=== PATIENT | male | born 1980 | race Caucasian/White ===

== ENCOUNTER 2020-09-17 12:54 | Outpatient (CLI) | payer OTHER, SELFPAY ==
[2020-09-17 17:44] LABS: Basophils Absolute Auto 0.1 K/mm3 (0.0-0.1); Basophils Percent Auto 0.7 % (0.2-1.2); Eosinophils Absolute Auto 0.1 K/mm3 (0-0.3); Eosinophils Percent Auto 2.1 % (0-4.4); Hemoglobin 14.8 g/dL (14.0-18.0); Immature Granulocyte Absolute 0.02 K/mm3 (0.00-0.031); Immature Granulocyte Percent A 0.3 % (0-0.5); Lymphocytes Absolute Auto 1.92 K/mm3 (0.9-3.2); Lymphocytes Percent Auto 28.7 % (18.3-44.2); Mean Corpuscular HGB Conc 34.4 g/dl (32-36); Mean Corpuscular Hemoglobin 31.2 pg (26-34); Mean Corpuscular Volume 90.5 fl (80-100); Mean Platelet Volume 10.3 fl (7.4-10.4); Monocytes Absolute Auto 0.6 K/mm3 (0.1-0.6); Monocytes Percent Auto 8.8 % (2.6-8.5); Neutrophils Percent Auto 59.4 % (45.5-73.1); Platelet Count Result 203 k/mm3 (150-375); Red Blood Count 4.75 M/mm3 (4.6-6.20); Red Cell Distribution Width 12.4 % (11.5-14.5); White Blood Count 6.7 K/mm3 (4.5-10.0)
[2020-09-17 18:10] LABS: Vitamin D 25 Hydroxy 23.6 ng/mL
[2020-09-17 18:18] LABS: Add Urine Microscopic? YES; Appearance Urine Clear (Clear); Bacteria Urine Trace /hpf; Bilirubin Urine Negative (Negative); Blood Urine 1+ (Negative); Color Urine Yellow (Yellow); Glucose Urine UA Negative (Negative); Ketones Urine Negative (Negative); Leukocyte Esterase Ur Negative LEU/UL (Negative); Mucus Urine Rare /lpf; Nitrate Urine Negative (Negative); Protein Urine 2+ mg/dL (Negative); RBC Urine 0-2 /hpf (0-2); Specific Grav Ur 1.023 (1.001-1.035); Squamous Epithelial Cell Urine Rare /hpf (Few); Urobilinogen Urine Negative mg/dL (<2.0); WBC Urine 0-3 /hpf
[2020-09-17 18:28] LABS: Alanine Aminotransferase 102 U/L (4-50); Alkaline Phosphatase 71 U/L (38-126); Anion Gap 5 mmol/L (8-16); Aspartate Amino Transferase 72 U/L (17-59); Bilirubin,Total 0.8 mg/dL (0.2-1.3); Blood Urea Nitrogen 15 mg/dL (9-20); Calcium 9.4 mg/dL (8.4-10.2); Carbon Dioxide 27 mmol/L (22-30); Chloride 105 mmol/L (98-107); Cholesterol 171 mg/dL (0-200); Estimated Glomerular Filt Rate > 60; Glucose 140 mg/dL (65-110); HDL Direct 33 mg/dL; Potassium 4.5 mmol/L (3.4-5.0); Sodium 137 mmol/L (137-145); Triglycerides 205 mg/dL (<150); Uric Acid 8.9 mg/dL (3.5-8.5)
[2020-09-17 18:39] LABS: LDL Cholesterol Direct 90 mg/dL
[2020-09-17 23:27] LABS: Folic Acid > 20.0 ng/mL (2.76->20)
[2020-09-23 05:33] LABS: C-Peptide 5.36 ng/mL (0.80-3.85); FSH 2.2 mIU/mL (1.6-8.0)
[2020-09-24 11:06] LABS: Testosterone Free 97.8 pg/mL (35.0-155.0); Testosterone Total 388 ng/dL (250-1100)
[2020-09-26 21:01] LABS: Estradiol, Ultrasensitive 60 pg/mL (< OR = 29)
== END 2020-09-17 12:55 | disposition home or self-care (01) ==
LOC: ANHBWCLAB 13:01
PROVIDERS: Visit Provider Family Medicine
DX: Z51.81 Encounter for therapeutic drug level monitoring (principal); Z79.899 Other long term (current) drug therapy; Z82.62 Family history of osteoporosis; G47.30 Sleep apnea, unspecified; J34.2 Deviated nasal septum; E29.1 Testicular hypofunction; M19.90 Unspecified osteoarthritis, unspecified site; J45.909 Unspecified asthma, uncomplicated; M10.9 Gout, unspecified
CPT/HCPCS: 36415; 80053; 80061; 81001; 82306; 82607; 82670; 82746; 83001; 84146; 84402; 84403; 84443; 84550; 84681; 85025

== ENCOUNTER 2020-10-02 12:09 | Outpatient (CLI) | payer OTHER, SELFPAY ==
[2020-10-02 19:36] LABS: Alanine Aminotransferase 108 U/L (4-50); Albumin Level 4.1 g/dL (3.5-5.1); Alkaline Phosphatase 78 U/L (38-126); Aspartate Amino Transferase 59 U/L (17-59); Bilirubin,Total 0.7 mg/dL (0.2-1.3); Uric Acid 8.5 mg/dL (3.5-8.5)
[2020-10-02 19:40] LABS: Hemoglobin A1C 7.1 % (<5.7)
[2020-10-02 20:07] LABS: Prostate Specific Antigen 0.4 ng/mL (< OR = 4.0)
[2020-10-02 20:50] LABS: Hepatitis B Surface Antigen Negative (Negative)
[2020-10-02 20:55] LABS: HAV RESULT Negative (Negative); Hepatitis B Core IgM Result Negative (Negative)
[2020-10-02 21:07] LABS: Hepatitis C Virus Antibody Negative (Negative)
== END 2020-10-02 12:10 | disposition home or self-care (01) ==
LOC: ANHBWCLAB 12:11
PROVIDERS: PCP Family Medicine; Visit Provider Family Medicine
DX: Z12.5 Encounter for screening for malignant neoplasm of prostate (principal); E79.0 Hyperuricemia without signs of inflammatory arthritis and tophaceous disease; R74.8 Abnormal levels of other serum enzymes; R94.5 Abnormal results of liver function studies; E34.9 Endocrine disorder, unspecified
CPT/HCPCS: 36415; 80074; 80076; 83036; 84153; 84550; G0103

== ENCOUNTER 2020-10-12 08:44 | Outpatient (CLI) | payer OTHER, SELFPAY ==
[2020-10-12 19:41] LABS: Hemoglobin A1C 6.6 % (<5.7)
== END 2020-10-12 08:45 | disposition home or self-care (01) ==
LOC: ANHBWCLAB 08:45
PROVIDERS: PCP Family Medicine; Visit Provider Family Medicine
DX: R73.09 Other abnormal glucose (principal)
CPT/HCPCS: 36415; 83036

== ENCOUNTER 2021-08-10 07:54 | Outpatient (CLI) | payer OTHER, SELFPAY ==
[2021-08-10 20:07] LABS: Hematocrit 47.9 % (42.0-52.0); Hemoglobin 16.1 g/dL (14.0-18.0); Mean Corpuscular HGB Conc 33.6 g/dl (32-36); Mean Corpuscular Hemoglobin 30.8 pg (26-34); Mean Corpuscular Volume 91.8 fl (80-100); Mean Platelet Volume 9.5 fl (7.4-10.4); Platelet Count Result 213 k/mm3 (150-375); Red Blood Count 5.22 M/mm3 (4.6-6.20); Red Cell Distribution Width 13.3 % (11.5-14.5); White Blood Count 5.7 K/mm3 (4.5-10.0)
[2021-08-10 20:15] LABS: Alanine Aminotransferase 82 U/L (6-50); Albumin Level 4.7 g/dL (3.5-5.1); Alkaline Phosphatase 62 U/L (38-126); Aspartate Amino Transferase 46 U/L (17-59); Bilirubin,Total 1.5 mg/dL (0.2-1.3)
[2021-08-10 20:18] LABS: Alanine Aminotransferase 82 U/L (6-50); Albumin Level 4.5 g/dL (3.5-5.1); Alkaline Phosphatase 63 U/L (38-126); Anion Gap 8 mmol/L (8-16); Aspartate Amino Transferase 45 U/L (17-59); Bilirubin,Total 1.5 mg/dL (0.2-1.3); Blood Urea Nitrogen 18 mg/dL (9-20); Calcium 8.8 mg/dL (8.4-10.2); Carbon Dioxide 27 mmol/L (22-30); Chloride 102 mmol/L (98-107); Cholesterol 168 mg/dL (0-200); Estimated Glomerular Filt Rate > 60; Glucose 119 mg/dL (65-110); HDL Direct 39 mg/dL; Potassium 4.1 mmol/L (3.4-5.0); Sodium 137 mmol/L (137-145); Triglycerides 154 mg/dL (<150)
[2021-08-10 20:29] LABS: LDL Cholesterol Direct 80 mg/dL
[2021-08-10 20:35] LABS: Creatinine Urine 281.3 mg/dL
[2021-08-10 21:41] LABS: MALB Creatinine Ratio 267.5 mg/g (0-30); Microalbumin Urine Random 752.6 mg/L (0-16.7)
[2021-08-12 04:51] LABS: Sex Hormone Binding Globulin 23 nmol/L (10-50)
[2021-08-13 12:13] LABS: Testosterone Total 197 ng/dL (250-1100)
[2021-08-23 00:06] LABS: Estradiol, Ultrasensitive 42 pg/mL (< OR = 29)
== END 2021-08-10 07:55 | disposition home or self-care (01) ==
PROVIDERS: PCP Family Medicine; Visit Provider Internal Medicine Endocrinology, Diabetes & Metabolism
DX: R74.8 Abnormal levels of other serum enzymes (principal); E11.9 Type 2 diabetes mellitus without complications; M10.9 Gout, unspecified; E34.9 Endocrine disorder, unspecified; E29.1 Testicular hypofunction; R79.89 Other specified abnormal findings of blood chemistry
CPT/HCPCS: 36415; 80053; 80061; 80076; 82043; 82670; 84270; 84403; 85027

== ENCOUNTER 2021-10-06 14:30 | Outpatient (RCR) | payer OTHER, SELFPAY ==
[2021-10-06 13:13] VITALS: BMI 50.9
[2021-10-06 14:01] VITALS: BMI 50.9
== END 2021-12-06 08:25 | disposition home or self-care (01) ==
LOC: ANHDMC 14:30
PROVIDERS: PCP Family Medicine; Referring Provider Internal Medicine Endocrinology, Diabetes & Metabolism; Visit Provider Internal Medicine Endocrinology, Diabetes & Metabolism
DX: E11.9 Type 2 diabetes mellitus without complications (principal); Z71.3 Dietary counseling and surveillance; Z71.89 Other specified counseling
CPT/HCPCS: 97802; 99199; G0108; G0109

== ENCOUNTER 2021-11-17 08:04 | Outpatient (CLI) | payer OTHER, SELFPAY ==
[2021-11-17 18:35] LABS: Albumin Level 4.2 g/dL (3.5-5.1)
[2021-11-17 18:56] LABS: Iron 106 ug/dL (49-181)
[2021-11-19 12:01] LABS: Sex Hormone Binding Globulin 20 nmol/L (10-50)
[2021-11-19 23:07] LABS: Testosterone Free 44.7 pg/mL (46.0-224.0); Testosterone Total 239 ng/dL (250-1100)
[2021-11-21 07:11] LABS: LH 3.2 mIU/mL (1.5-9.3); Prolactin 15.8 ng/mL (***)
[2021-11-24 18:57] LABS: Estradiol, Ultrasensitive 33 pg/mL (< OR = 29)
== END 2021-11-17 08:05 | disposition home or self-care (01) ==
LOC: ANHBWCLAB 08:05
PROVIDERS: PCP Family Medicine; Visit Provider Internal Medicine Endocrinology, Diabetes & Metabolism
DX: R74.8 Abnormal levels of other serum enzymes (principal); E29.1 Testicular hypofunction; R79.89 Other specified abnormal findings of blood chemistry
CPT/HCPCS: 36415; 82040; 82670; 83001; 83002; 83540; 84146; 84270; 84402; 84403

== ENCOUNTER 2022-01-11 06:32 | Outpatient (RCR) | payer OTHER, SELFPAY | END 2022-04-04 15:08 | disposition home or self-care (01) | LOC: ANHDMC 06:32 | PROVIDERS: PCP Family Medicine; Referring Provider Internal Medicine Endocrinology, Diabetes & Metabolism; Visit Provider Internal Medicine Endocrinology, Diabetes & Metabolism | DX: E11.9 Type 2 diabetes mellitus without complications (principal) | CPT/HCPCS: 99199 ==

== ENCOUNTER 2022-01-14 12:54 | Emergency (ER) | payer OTHER, SELFPAY ==
[2022-01-14 13:05] VITALS: BP 144/69; PULSE 87; RESP 20; TEMP 36.4; O2SAT 99
--- NOTE | 2022-01-14 13:29 | ED.URI ---
HPI - URI/Sore Throat General Chief Complaint: Upper Respiratory Infection Stated Complaint: Sinus Pain Time Seen by Provider: 01/14/22 13:10 Source: patient Mode of arrival: ambulatory Limitations: no limitations History of Present Illness HPI Narrative: Doe is a 41-year-old male patient presenting to the clinic today with complaints of sinus pain and ear pain. He reports that symptoms just began this morning. He denies any fever chills. MD elicited complaint: sore throat and nasal congestion Related Data Home Medications Medication Instructions Recorded Confirmed fluticasone propionate 50 1 spray intranasal DAILY 01/23/20 07/27/21 mcg/actuation nasal spray,suspension Allergies Allergy/AdvReac Type Severity Reaction Status Date / Time Iodinated Contrast Media Allergy Unknown Verified 01/14/22 13:32 Review of Systems Review of Systems: Pertinent positives per HPI. Patient denies any fever, chills, rash, headache, visual changes, dizziness, cough, shortness of breath, chest pain, palpitations, nausea, vomiting, diarrhea, constipation, abdominal pain, or any urinary issues. PMFSH Past Medical History Medical History Arthritis Asthma Deviated nasal septum Surgically corrected Gout Sleep apnea currently on CPAP Surgical History Surgical History History of ear surgery History of nasal surgery History of placement of ear tubes Hx of tonsillectomy Family History Family History Mother Hypertension Arthritis Father Hypertension Diabetes mellitus Grandparent Breast cancer Grandparent COPD (chronic obstructive pulmonary disease) Dementia Sibling Diabetes mellitus Social History Social History Years smoked: 12 Smoking status: Former smoker Alcohol intake: current Substance use type: does not use Spiritual care concerns: No Comments At the time of my signature, I reviewed and agree with the nursing past medical, surgical, social, and family history. There is no relevant family history pertinent to the patient complaint. Exam Narrative: General: Well-developed, well nourished, in no apparent distress Head: Normocephalic, atraumatic Eyes: Pupils equally round and reactive to light bilaterally, EOM intact, sclera and conjunctive clear, no discharge, lids normal Ears: Left TMs intact and clear, right TM intact, red, bulging ear canals clear, no drainage, grossly hearing normal. Nose: Nares patent, clear discharge, no inflammation, right-sided ethmoid sinus tenderness. Mouth: Oral pharynx without lesions or masses, good dentition, MMM. Neck: Supple, trachea midline, no enlargement of anterior or posterior cervical nodes, no thyroid masses or goiter palpable. Cardio: Regular rate and rhythm, s1 and s2 normal, no murmur appreciated. Resp: Clear to auscultation bilaterally, no rhonchi, rales, wheezing or rubs Course Course Emergency Course: Portions of this record may have been created with voice recognition software. Level of Care: Express Care Visit Vital Signs Vital signs: Vital Signs Temperature 36.4 C 01/14/22 13:05 Pulse Rate 87 01/14/22 13:05 Respiratory Rate 20 01/14/22 13:05 Blood Pressure 144/69 H 01/14/22 13:05 Pulse Oximetry 99 01/14/22 13:05 Oxygen Delivery Room Air 01/14/22 13:05 Temperature 36.4 C 01/14/22 13:05 Pulse Rate 87 01/14/22 13:05 Respiratory Rate 20 01/14/22 13:05 Blood Pressure 144/69 H 01/14/22 13:05 Pulse Oximetry 99 01/14/22 13:05 Oxygen Delivery Room Air 01/14/22 13:05 Vital signs reviewed MDM - URI/Sore Throat MDM Narrative Medical decision making narrative: at the time of visit patient is resting co
== END 2022-01-14 13:50 | disposition home or self-care (01) ==
PROVIDERS: Emergency Provider Nurse Practitioner Family; PCP Family Medicine
DX: H66.91 Otitis media, unspecified, right ear (principal); J32.9 Chronic sinusitis, unspecified; J45.909 Unspecified asthma, uncomplicated; G47.30 Sleep apnea, unspecified; Z87.891 Personal history of nicotine dependence
CPT/HCPCS: 87804; 99213; G0463

== ENCOUNTER 2022-06-20 08:27 | Outpatient (CLI) | payer OTHER, SELFPAY ==
[2022-06-20 17:53] LABS: Basophils Percent Auto 0.7 % (0.2-1.2); Eosinophils Absolute Auto 0.1 K/mm3 (0-0.3); Eosinophils Percent Auto 1.4 % (0-4.4); Hematocrit 47.2 % (42.0-52.0); Hemoglobin 15.6 g/dL (14.0-18.0); Immature Granulocyte Absolute 0.01 K/mm3 (0.00-0.031); Immature Granulocyte Percent A 0.2 % (0-0.5); Lymphocytes Absolute Auto 2.44 K/mm3 (0.9-3.2); Lymphocytes Percent Auto 43.2 % (18.3-44.2); Mean Corpuscular HGB Conc 33.1 g/dl (32-36); Mean Corpuscular Hemoglobin 30.2 pg (26-34); Mean Corpuscular Volume 91.3 fl (80-100); Mean Platelet Volume 9.7 fl (7.4-10.4); Monocytes Absolute Auto 0.5 K/mm3 (0.1-0.6); Monocytes Percent Auto 9.6 % (2.6-8.5); Neutrophils Absolute Auto 2.5 K/mm3 (1.3-6.7); Neutrophils Percent Auto 44.9 % (45.5-73.1); Platelet Count Result 226 k/mm3 (150-375); Red Blood Count 5.17 M/mm3 (4.6-6.20); Red Cell Distribution Width 12.5 % (11.5-14.5); White Blood Count 5.7 K/mm3 (4.5-10.0)
[2022-06-20 18:27] LABS: Alanine Aminotransferase 66 U/L (6-50); Albumin Level 4.3 g/dL (3.5-5.1); Alkaline Phosphatase 56 U/L (38-126); Anion Gap 6 mmol/L (8-16); Aspartate Amino Transferase 75 U/L (17-59); Bilirubin,Total 0.8 mg/dL (0.2-1.3); Blood Urea Nitrogen 19 mg/dL (9-20); Calcium 8.8 mg/dL (8.4-10.2); Carbon Dioxide 32 mmol/L (22-30); Chloride 100 mmol/L (98-107); Cholesterol 161 mg/dL (0-200); Estimated Glomerular Filt Rate > 60; Glucose 101 mg/dL (65-110); HDL Direct 32 mg/dL; Potassium 4.3 mmol/L (3.4-5.0); Sodium 138 mmol/L (137-145); Triglycerides 176 mg/dL (<150)
[2022-06-20 18:38] LABS: LDL Cholesterol Direct 80 mg/dL
[2022-06-20 18:57] LABS: Prostate Specific Antigen 0.6 ng/mL (< OR = 4.0)
[2022-06-20 19:03] LABS: Hemoglobin A1C 6.3 % (<5.7)
[2022-06-26 15:49] LABS: Testosterone Free 52.5 pg/mL (35.0-155.0); Testosterone Total 268 ng/dL (250-1100)
[2022-06-28 18:02] LABS: Estradiol, Ultrasensitive 36 pg/mL (< OR = 29)
== END 2022-06-20 08:28 | disposition home or self-care (01) ==
LOC: ANHBWCIMG 08:28 → ANHBWCLAB 08:31
PROVIDERS: PCP Family Medicine; Visit Provider Family Medicine
DX: R79.89 Other specified abnormal findings of blood chemistry (principal); E34.9 Endocrine disorder, unspecified; E11.9 Type 2 diabetes mellitus without complications
CPT/HCPCS: 36415; 80053; 80061; 82670; 83036; 84153; 84402; 84403; 85025; G0103

== ENCOUNTER 2022-11-08 08:08 | Outpatient (CLI) | payer OTHER, SELFPAY ==
[2022-11-08 19:15] LABS: Hematocrit 47.3 % (42.0-52.0); Hemoglobin 15.1 g/dL (14.0-18.0); Mean Corpuscular HGB Conc 31.9 g/dl (32-36); Mean Corpuscular Hemoglobin 30.5 pg (26-34); Mean Corpuscular Volume 95.6 fl (80-100); Mean Platelet Volume 10.1 fl (7.4-10.4); Platelet Count Result 219 k/mm3 (150-375); Red Blood Count 4.95 M/mm3 (4.6-6.20); White Blood Count 7.3 K/mm3 (4.5-10.0)
[2022-11-08 19:24] LABS: Hemoglobin A1C 6.3 % (<5.7)
[2022-11-08 19:46] LABS: Alanine Aminotransferase 67 U/L (6-50); Albumin Level 4.4 g/dL (3.5-5.1); Alkaline Phosphatase 68 U/L (38-126); Anion Gap 7 mmol/L (8-16); Aspartate Amino Transferase 65 U/L (17-59); Bilirubin,Total 0.5 mg/dL (0.2-1.3); Blood Urea Nitrogen 18 mg/dL (9-20); Calcium 8.9 mg/dL (8.4-10.2); Carbon Dioxide 28 mmol/L (22-30); Chloride 101 mmol/L (98-107); Cholesterol 168 mg/dL (0-200); Estimated Glomerular Filt Rate > 60; Glucose 126 mg/dL (65-110); HDL Direct 35 mg/dL; Potassium 4.6 mmol/L (3.4-5.0); Sodium 136 mmol/L (137-145); Triglycerides 135 mg/dL (<150)
[2022-11-08 19:57] LABS: LDL Cholesterol Direct 93 mg/dL
[2022-11-08 21:00] LABS: Microalbumin Urine Random 345.2 mg/L (0-16.7)
[2022-11-08 21:20] LABS: Creatinine Urine 137.9 mg/dL; MALB Creatinine Ratio 250.3 mg/g (0-30)
[2022-11-12 18:25] LABS: Testosterone Free 40.7 pg/mL (35.0-155.0); Testosterone Total 242 ng/dL (250-1100)
== END 2022-11-08 08:09 | disposition home or self-care (01) ==
LOC: ANHBWCLAB 08:10
PROVIDERS: PCP Nurse Practitioner Adult Health; Visit Provider Nurse Practitioner Adult Health
DX: E11.9 Type 2 diabetes mellitus without complications (principal); R79.89 Other specified abnormal findings of blood chemistry
CPT/HCPCS: 36415; 80053; 80061; 82043; 83036; 84402; 84403; 85027

== ENCOUNTER 2024-09-25 11:01 | Emergency (ER) | payer OTHER, SELFPAY ==
[2024-09-25 11:06] VITALS: BP 111/71; PULSE 60; RESP 14; TEMP 36.6; O2SAT 100
--- NOTE | 2024-09-25 11:32 | ED.EAR ---
HPI - Ear Problem General Chief complaint: Ear Stated complaint: Ear Pain Time Seen by Provider: 09/25/24 11:28 Source: patient and RN notes reviewed Mode of arrival: ambulatory Limitations: no limitations History of Present Illness HPI Narrative: Patient presents today complaining of left ear pain and pressure x2 days after swimming last week. Denies drainage or muffling. Currently rates his pain 3/10 and has tried no OTC treatment prior to arrival. Reports history of frequent ear infections. Related Data Home Medications ?Medication ?Instructions ?Recorded ?Confirmed ?Last Taken ?Type albuterol sulfate 90 mcg/actuation 2 puff inhalation Q4-6H PRN 01/14/22 11/07/22 Unknown History aerosol inhaler Shortness Of Breath chlorhexidine gluconate 0.12 % 09/25/24 Unknown History mouthwash cholecalciferol (vitamin D3) 1,250 09/25/24 Unknown History mcg (50,000 unit) capsule docusate sodium 100 mg capsule mg PO 09/25/24 Unknown History omeprazole 40 mg capsule,delayed mg 09/25/24 Unknown History release Allergies Allergy/AdvReac Type Severity Reaction Status Date / Time Iodinated Contrast Media Allergy Unknown Verified 09/25/24 11:06 [facility] Past Medical History Medical History Deviated nasal septum Surgically corrected Sleep apnea currently on CPAP Gout Arthritis Asthma Surgical History Surgical History History of nasal surgery History of ear surgery Hx of tonsillectomy History of placement of ear tubes Family History Family History Mother Hypertension Arthritis Father Hypertension Diabetes mellitus Grandparent Breast cancer Grandparent COPD (chronic obstructive pulmonary disease) Dementia Sibling Diabetes mellitus Social History Social History Years smoked: 12 Smoking status: Former smoker Alcohol intake: current Substance use type: does not use Lack of Transportation: No Lack of Food: Never True Current Housing: I Have Housing Concerned About Future Housing: No Difficulty Paying Gas/Electric Bills: YES Difficulty Paying for Meds: No Currently Unemployed: No Education: Trade/Vocational Certificate Difficulty w/ Childcare or Family Care: No Spiritual care concerns: No Comments At time of signature, I have reviewed and agree with nursing past medical, surgical, social and family history unless otherwise noted. Please see nursing chart for further information. There is no relevant family history pertinent to the presenting complaint Exam Narrative: GENERAL: Well-appearing, well-nourished, and in no acute distress. HEAD: Normocephalic, atraumatic. EYES: EOMI. No redness or drainage. Conjunctivae normal. ENT: Mucous membranes pink and moist. Right TM and canal normal. No movement or tragal tenderness on the right. Left ear:Left TM without erythema or signs of bacterial infection.+ tragal tenderness. Left canal is mildly erythematous with some mild white debris. NECK: Normal AROM. Supple. No lymphadenopathy. CHEST: No respiratory distress. EXTREMITIES: Normal range of motion. No edema. SKIN: Warm, dry, no rash. Capillary refill normal. Normal skin turgor. NEURO: No focal deficits. Alert and oriented x3. Gait steady. PSYCH: Normal affect. No signs of depression or anxiety. Course Course Level of Care: Express Care Visit Vital Signs Vital signs: Vital Signs Temperature 98 F 09/25/24 11:06 Pulse Rate 60 09/25/24 11:06 Respiratory Rate 14 09/25/24 11:06 Blood Pressure 111/71 09/25/24 11:06 Pulse Oximetry 100 09/25/24 11:06 Oxygen Delivery Room Air 09/25/24 11:06 Temperature 98 F 09/25/24 11:06 Pulse Rate 60 09/25/24 11:06 Respiratory Rate 14 09/25/24 11:06 Blood Pressure 111/71 09/25/24 11:06 Pulse Oximetry 100 09/25/24 11:06 Oxygen Delivery Room Air 09/25/24 11:06 Reviewed Medical Decision Making [facility] Narrative Medical decision making narrative: 44-year-old male patient presents today complaining of a 2 day history of left ear pain after swimming last week. Denies drainage or muffling. Currently rates his pain 3/10 and has tried no OTC treatment prior to arrival. Denies any additional symptoms. Upon exam, patient has tragal tenderness of the left ear with mild erythema and white debris in the ear canal. TM normal. Exam consistent with left otitis externa and patient will be treated with rwgajvvr-yqjftgmrh-ahbjmsruywrflu ear drops. Vital signs stable. Patient agrees with plan. Anticipatory guidance given. Differential Diagnosis Differential Diagnosis: Otitis media, otitis externa, ruptured TM, serous otitis, cerumen impaction Vital Signs Vital Signs: Vital Signs Temperature 98 F 09/25/24 11:06 Pulse Rate 60 09/25/24 11:06 Respiratory Rate 14 09/25/24 11:06 Blood Pressure 111/71 09/25/24 11:06 Pulse Oximetry 100 09/25/24 11:06 Oxygen Delivery Room Air 09/25/24 11:06 Temperature 98 F 09/25/24 11:06 Pulse Rate 60 09/25/24 11:06 Respiratory Rate 14 09/25/24 11:06 Blood Pressure 111/71 09/25/24 11:06 Pulse Oximetry 100 09/25/24 11:06 Oxygen Delivery Room Air 09/25/24 11:06 Critical Care Time Critical Care Time Critical Care Time: No Discharge Plan Discharge Clinical Impression: Left otitis externa Patient Disposition: Home Condition: Stable Instructions: Swimmer's Ear (GEN) Additional Instructions: You have been diagnosed with an infection in your ear canal. Please use the ear drops as directed. Keep the ears dry as possible. Do not submerge your head in standing water such as pools, hot tubs, lakes, bathtubs, until the infection has resolved. Showering is fine. Do not use anything in the ear that can be irritating such as Q-tips, ear plugs, ear buds. Take Tylenol or ibuprofen for pain, if able. Follow-up with your PCP in 3 days if symptoms are not improving. Patient Language: Romansh Prescriptions: New aaygjqxd-hdyqrqtbd-DJ 3.5-10,000-1 mg/mL-unit/mL-% drops,suspension 4 drp LEFT EAR Q8H 7 Days Qty: 10 0RF No Action albuterol sulfate 90 mcg/actuation HFA aerosol inhaler 2 puff inhalation Q4-6H PRN (Reason: Shortness Of Breath) omeprazole 40 mg capsule,delayed release(DR/EC) docusate sodium 100 mg capsule PO chlorhexidine gluconate 0.12 % mouthwash cholecalciferol (vitamin D3) 1,250 mcg (50,000 unit) capsule ketoconazole 2 % cream 1 applic topical DAILY Qty: 30 3RF (DME) pen needle, diabetic [1st Tier Unifine Pentips] 31 gauge x 5/16 needle See Rx Instructions .Route Qty: 100 3RF Rx Instructions: use 1 pen needle to inject Victoza once daily (DME) lancets [Fingerstix Lancets] Misc See Rx Instructions .Route Qty: 100 5RF Rx Instructions: As directed, 3 x day (DME) OneTouch Verio test strips Strip See Rx Instructions .Route Qty: 100 5RF Rx Instructions: As directed, test 3x day tamsulosin 0.4 mg capsule 0.4 mg PO DAILY Qty: 90 1RF Follow-up/Referrals: Oneil,DALILA Payne [Primary Care Provider] - Time of Disposition: 11:36
--- OUTSIDE RECORDS SUMMARY | 2024-09-25 11:47 | XMS_ITS ---
Author Organization [facility] Address [address] [place], [place] [id number] Care Team Providers Care Conductor Sleeping Car Name Role Phone Derek Xie DO Unavailable [phone] Medications Medication SIG (Take, Route, Frequency, Duration) Notes Start Date End Date Status Flomax 0.4 MG 1 capsule Orally Onc e a day Unknown Vitamin D3 1.25 MG (07622 UT) 1 capsule Orally Every week; Duration: 30 days 03/06/2024 03/01/2025 Unknown Meloxicam 15 MG 1 tablet Orally Once a day Unknown Docusate Sodium 100 MG 1 capsule every m orning and evening Orally Twice a day; Duration: 30 days 04/26/2024 08/24/2024 Active Victoza 18 MG/3ML as directed Subcutaneous Unknown traMADol HCl 50 MG 1 tablet as needed O rally Once a day Unknown Problems Problem Type SNOMED Code ICD Code Onset Dates Problem Status W/U Status Risk Notes Problem Vitamin deficiency (22389567) Vitamin deficiency, unspecified (E56.9) Active confirmed Problem 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) Active confirmed Vital Signs Temperature 97.1 degrees Fahrenheit 06/06/19 25 Blood pressure systolic 115 mm Hg 06/06/19 25 Blood pressure diastolic 78 mm Hg 025 Heart Rate 72 /min 06/05/2024 Height 74 in 06/05/2024 Weight 328 lbs 06/05/2024 BMI 42.11 kg/m2 06/05/2024 Oximetry 98 % 06/05/2024 Height-cm 187.96 cm 06/05/2024 Weight-kg 148.78 kg 06/05/2024 Encounters Encounter Location Date Provider Diagnosis [facility] [address] [place], [place] [id number] 06/05/2024 Derek Xie Vitamin deficiency, unspecified E56.9 ; Morbid (severe) obesity due to excess calories E66.01 ; Other specified personal risk factors, not elsewhere classified Z91.89 ; S/P bariatric surgery Z98.84 ; Postoperative intestinal malabsorption K91.2 and Obstructive sleep apnea G47.33 Assessments Encounter Date Diagnosis (ICD Code) Assessment Notes Treatment Notes Treatment Clinical Notes Section Notes 06/05/2024 Vitamin deficiency, unspecified (ICD-10 - E56.9) 06/05/2024 Morbid (severe) obesity due to excess calories (ICD-10 - E66.01) 06/05/2024 Other specified personal risk factors, not elsewhere classified (ICD-10 - Z91.89) 06/05/2024 S/P bariatric surgery (ICD-10 - Z98.84) 06/05/2024 Postoperative intestinal malabsorption (ICD-10 - K91.2) 06/05/2024 Obstructive sleep apnea (ICD-10 - G47.33) Plan Of Treatment Pending Test Test Name Order Date IRON, TIBC AND FERRITIN PANEL (5616) COMPREHENSIVE METABOLIC PANEL (51582) CBC (H/H, RBC, INDICES, WBC, PLT) (1759) 06/05/2024 HEMOGLOBIN A1c (496) 06/05/2024 VITAMIN B12/FOLATE, SERUM PANEL (7065) 0 06/05/2024 TSH (899) 06/05/2024 VITAMIN D,25-OH,TOTAL,IA (40152) 025 ZINC (945) 06/05/2024 VITAMIN B1 (THIAMINE), SERUM/PLASMA, LC/ MS/MS (71981) 06/05/2024 Next Appt Details Follow Up: 6 Months, Reason: Procedure Notes * Category Sub-Category Detail Notes Post Operative Plan Education: Emphasized e xercise and activity expectations; goal of 10,000 steps/day & 150 active min/wk. Reiterated importance of drinking at least 64 oz fluid & taking in at least 60-90g protein daily: . Patient understands the ryan y postop vitamin requirements: MVI, calcium + Vit D (1,500IU), folate 100mg, and any other vitamin supplements as needed based on laboratory monitoring. Reviewed appropriate eating habits and food choices: . Reminded patient that surger y is not a magic fix for weight loss: it is hard work and requires many behavioral changes to be successful. Encouraged patient follow with their PCP regularly, especially regarding medication changes: ; to see a counselor if mental health concerns arise; and continue to follow-up with bariatric senior electrical designer. There are no barriers to education today: . DISPOSITION: Return in: 6 months for follo w-up visit. Patient also instructed to h ave repeat labs drawn prior to next postop follow-up visit; orders placed: CBC w/diff, CMP, Vit B1, Folate, Vit B12, iron/TIBC, lipid panel, 25-Hydroxy, HbA1C, zinc. The patient is encouraged to call the clinic with any questions or concerns in the meantime. The patient demonstrates understanding and is amendable to the above outlined plan: . Progress Notes * Anthony ANDINOOB:1980 (44 yo M)Acc No.[id number]:06/05/2024 Patient: Doe DAWKINS Provider: Finn Xie DO :1980 A ge:44 Y S ex:Male Date:06/05/2024 Address[id number] Subjective: * Chief Complaints: * * HPI: H istory of Present Illness: Visit: T jacoby since surgery: 2 MONTHS - S urgical Procedure: S leeve Gastrectomy D ate of Surgery: 0 04/08/2024 Interval History: T he patient is a p resenting for bariatric postoperative follow-up. Since our last follow-up, ailyn kamara been taking bariatric vitamins and ailyn kamara not had bariatric vitamin labs drawn. > INTERVAL ISSUES/CONCERNS: n one H as patient been admitted to the hospital??No H as patient undergone any post-bariatric surgical operations or interventions? N o P re-surgical Weight: 4 07 lb L ast Visit Weight: 3 53 lb T SUZI'S WEIGHT: 3 28 lb T otal Weight Loss (TBW): 7 9 lb % TBW Lost: 1 9.4 % > Daily fluid/water intake = 4 0-60 ounces > Protein Intake is a dequate > Physical Activity: W alking less than 10,000 steps/day COMORBIDITY EVALUATION : LOLLY No GERD No Hypertension No Hyperlipidemia No Diabetes No VTE No Is Patient attending any support groups E ncouraged attendance . Does patient take any medications for weight loss? - N o * ROS: G eneral / Constitutional: Chills d enies. F ever d enies. A llergy / Immunology: Blistering skin d enies. H EENT: Difficulty in swallowing d enies. N jennyfer congestion?denies. E ndocrine: Cold intolerance d enies. E xcessive thirst d enies. R espiratory: Chest pain d enies. C ough d enies. ? C ardiovascular: Chest pain d enies. P alpitations d enies. W eakness d enies. G astrointestinal: Abdominal pain d enies. D iarrhea d enies. J aundice d enies. R ectal bleeding d enies. G enitourinary: Blood in the urine d enies. D ifficulty urinating d enies. M usculoskeletal: Limping gait d enies. W eakness d enies. B urning pain in lower legs d enies. P sychiatric: Auditory / visual hallucinations d enies. S ubstance abuse d enies. S uicidal thoughts d enies. R eview of Systems: Fever/Chills: N o. E levated HR: N o. B loating/hiccups: N o. S OB/cough/wheezing: N o. L ower extremity pain or swelling: N o.?Decreased UOP: N o. B owel function N ormal BMs without complaint. ? * Medical History: * Medications: T aking Docusate Sodium 100 MG Capsule 1 capsule every morning and evening Orally Twice a day , stop date 08/24/2024, Unknown traMADol HCl 50 MG Tablet 1 tablet as needed Orally Once a day , Unknown Flomax 0.4 MG Capsule 1 capsule Orally Once a day , Unknown Meloxicam 15 MG Tablet 1 tablet Orally Once a day , Unknown Vitamin D3 1.25 MG (23414 UT) Capsule 1 capsule Orally Every week , stop date 03/01/2025, Unknown Victoza 18 MG/3ML Solution Pen-injector as directed Subcutaneous Objective: * Vitals: W t:328, Ht:74, BMI:42.11, Oxygen sat %:98, HR:72, BP:115/78, Temp:97.1, Wt- k.78, Ht-cm:187.96, Body Surface Area:2.79. Past Vitals:* 04/24/2024 Wt:253, BMI:32.48, BP:109/76 * 02/22/2024 Wt:399, BMI:51.22, BP:135/11 3 * 12/20/2023 Wt:407, BMI:52.25, BP:117/78 * 12/20/2023 Wt:407, BMI:52.25, BP:117/78 * Examination: P hysical Exam: General: W ell-developed a dult in no acute distress Head: A traumatic, normocephalic . Neck: S upple, trachea midline. No cervical lymphadenopathy . Chest: Unlabored breathing without respiratory distress Heart: Normal rate and regular rhythm Abdomen: Soft, non-tender, Bowel sounds normal, No masses, no organomegaly Extremities: Warm and well perfused Psych G ood insight, good judgement, appropriate affect . Integumentary: W arm and dry . R eviewed any recent lab &/or imaging results w ith patient during visit today. Assessment: * Assessment: 1. M orbid (severe) obesity due to excess calories - E66.01 (Primary) 2 . V itamin deficiency, unspecified - E56.9 3 . O ther specified personal risk factors, not elsewhere classified - Z91.89 4 . S /P bariatric surgery - Z98.84 & #160; 5 . P ostoperative intestinal malabsorption - K91.2 6 . O bstructive sleep apnea - G47.33 Plan: * Treatment: 2. O ther specified personal risk factors, not elsewhere classified L AB: IRON, TIBC AND FERRITIN PANEL (5616) L AB: COMPREHENSIVE METABOLIC PANEL (44955) L AB: CBC (H/H, RBC, INDICES, WBC, PLT) (1759) L AB: HEMOGLOBIN A1c (496) L AB: VITAMIN B12/FOLATE, SERUM PANEL (7065) L AB: TSH (899) L AB: VITAMIN D,25-OH,TOTAL,IA (35900) L AB: ZINC (945) L AB: VITAMIN B1 (THIAMINE), SERUM/PLASMA, LC/MS/MS (54668) 3. S /P bariatric surgery L AB: IRON, TIBC AND FERRITIN PANEL (5616) L AB: COMPREHENSIVE METABOLIC PANEL (73060) L AB: CBC (H/H, RBC, INDICES, WBC, PLT) (1759) L AB: HEMOGLOBIN A1c (496) L AB: VITAMIN B12/FOLATE, SERUM PANEL (7065) L AB: TSH (899) L AB: VITAMIN D,25-OH,TOTAL,IA (42429) L AB: ZINC (945) L AB: VITAMIN B1 (THIAMINE), SERUM/PLASMA, LC/MS/MS (82340) 4. P ostoperative intestinal malabsorption L AB: IRON, TIBC AND FERRITIN PANEL (5616) L AB: COMPREHENSIVE METABOLIC PANEL (87556) L AB: CBC (H/H, RBC, INDICES, WBC, PLT) (1759) L AB: HEMOGLOBIN A1c (496) L AB: VITAMIN B12/FOLATE, SERUM PANEL (7065) L AB: TSH (899) L AB: VITAMIN D,25-OH,TOTAL,IA (12240) L AB: ZINC (945) L AB: VITAMIN B1 (THIAMINE), SERUM/PLASMA, LC/MS/MS (16338) * Procedures: P ost Operative Plan: Education: E mphasized exercise and activity expectations; goal of 10,000 steps/day & 150 active min/wk. Reiterated importance of drinking at least 64 oz fluid & taking in at least 60-90g protein daily . P atient understands the daily postop vitamin requirements: MVI, calcium + Vit D (1,500IU), folate 100mg, and any other vitamin supplements as needed based on laboratory monitoring. Reviewed appropriate eating habits and food choices . R eminded patient that surgery is not a magic fix for weight loss: it is hard work and requires many behavioral changes to be successful. Encouraged patient follow with their PCP regularly, especially regarding medication changes ; t o see a counselor if mental health concerns arise; and continue to follow-up with bariatric senior electrical designer. There are no barriers to education today . DISPOSITION: R eturn in 6 months for follow-up visit. P atient also instructed to have repeat labs drawn prior to next postop follow-up visit; orders placed: CBC w/diff, CMP, Vit B1, Folate, Vit B12, iron/TIBC, lipid panel, 25-Hydroxy, HbA1C, zinc. The patient is encouraged to call the clinic with any questions or concerns in the meantime. The patient demonstrates understanding and is amendable to the above outlined plan . * Procedure Codes: 9 9024 POSTOP FOLLOW-UP VISIT * Follow Up: 6 Months Forms: * Billing Information: * Visit Code: * Procedure Codes: 35518 POSTOP FOLLOW-UP VISIT. * Electronic signature of Shady Xie DO, [id number] on 09/25/2024 at 11:47 AM CDT Sign off status: Pending * Provider: Finn Xie DO Date: 0 06/05/2024 Generated for Winston roa/Darci/eTfranksmitting on: 0 09/25/2024 11:47 AM CDT History and Physical Notes * HPI (History of Present Illness) Category Sub-Category Detail Notes Category Not es History of Present Illness Visit: Time since surgery:: 2 MONTHS - Surgical Procedure:: Sleeve Gastrectomy Date of Surgery:: 04/08/2024 Interval History: The patient is a: presenting f or bariatric postoperative follow-up. Since our last follow-up, they: have been taking bariatri c vitamins and they: have not had bariatric vitami n labs drawn. > INTERVAL ISSUES/CONCERNS:: none Has patient been admitted to the [facility]?: No Has patient undergone any po st-bariatric surgical operations or interventions?: No Pre-surgical Weight:: 407 lb Last Visit Weight:: 353 lb TODAY'S WEIGHT:: 328 lb Total Weight Loss (TBW):: 79 lb %TBW Lost:: 19.4 % > Daily fluid/water intake =: 40-60 ounc es > Protein Intake is: adequate > Physical Activity:: Walkin g less than 10,000 steps/day COMORBIDITY EVALUATION : LOLLY No GERD No Hypertension No Hyperlipidemia No Diabetes No VTE No Is Patient attending any support groups Encourag ed attendance: . Does patient take any medications for weight los s? -: No Examination Category Sub-Category Detail Notes Category Not es Physical Exam General: Well-developed: adult in no acute distress Reviewed any recent lab &/or imaging results with patient during visit today. Chest: Unlabored breath ing without respiratory distress Abdomen: Soft, non-tender, Raf wel sounds normal, No masses, no organomegaly Extremities: Warm and well perfused Heart: Normal rate and regular rhythm Psych Good insight, good j udgement, appropriate affect: . Integumentary: Warm and dry: . Head: Atraumatic, normocephalic: . Neck: Supple, trachea midl ine. No cervical lymphadenopathy: .
--- OUTSIDE RECORDS SUMMARY | 2024-09-25 11:47 | XMS_ITS | Clinical Summary ---
Author Organization [facility] Address [address] [place] [address] Phone Care Team Providers Care Probate Clerk Name Role Phone Provider, Unknown Primary Care Provider Unavaila ble Allergies Active Allergy Reactions Criticality Noted Date Comments Iodinated Contrast Media Other (see Comments) High 04/11/2018 Family history of contrast dye, no personal history. Dust Mite Extract Runny Nose High 04/18/2018 Congestion , water eyes , runny nose Molds & Smuts Itching,Other (see Comments) High 04/18/2018 Congestion, watery eye, runny nose Other Runny Nose,Unknown High 03/02/2018 Clams and feathers ////House dust in general//// Runny nose water eye and congestion Medications Cetirizine HCl 10 MG Capsule take 1 tablet by oral route every day 07/01/19 17 Active fluticasone (FLONASE) 50 MCG/ACT Suspension 1 [place] by Nasal route daily. Use in each nostril as directed. 3 Bottle 3 11/08/19 19 Active Cyanocobalamin (VITAMIN B12 PO) Take by mouth daily. Active albuterol 108 (90 Base) MCG/ACT Aerosol Solution take 2 Puffs by inhalation every 4 hours as needed for Wheezing. 8.5 g 4 05/21/19 20 Active vardenafil (LEVITRA) 20 MG Tablet TAKE 1 TAB BY MOUTH NEEDED (FOR ERECTILE DYSFUNCTION). 10 Tab 07/01/19 20 Active Additional Information Patient not taking.Reported on 07/13/2022 tamsulosin (FLOMAX) 0.4 MG CapsuleIndicati ons:Incomplete emptying of bladder TAKE 1 CAPSULE BY MOUTH EVERY DAY 90 Cap 3 08/01/19 20 Active Additional Information Patient taking differently: 0.4 mg Oral NIGHTLY, Reported on 01/08/2020 testosterone cypionate (DEPO-TESTOSTER ONE) 200 MG/ML SolutionIndicat ions:Hypogonadi sm in male INJECT 1ML INTRAMUSCULARYLY EVER 14 DAYS 1 mL 4 08/26/19 20 Active Additional Information Patient taking differently: 200 mg Intramuscular EVERY 14 DAYS, ON SUNDAYS, Reported on 01/08/2020 naproxen (NAPROSYN) 500 MG TabletIndicatio ns:Acute gout involving toe of right foot, unspecified cause TAKE 1 TABLET BY MOUTH TWICE A DAY WITH MEALS FOR 10 DAYS 60 Tab 10/08/19 Active Additional Information Patient taking differently: 500 mg Oral 2 TIMES DAILY WITH MEALS, Reported on 01/08/2020 other by Other route. CICLOPIRAX SHAMPOO 1-2 TIMES WEEKLY Active traMADol (ULTRAM) 50 MG Tablet Take 1 Tablet by mouth every 8 hours as needed for Moderate or more severe pain. 12 Tablet 08/20/19 21 Active cyclobenzaprine (FLEXERIL) 5 MG TabletIndicatio ns:Muscle Spasm Take 1 Tablet by mouth 3 times daily as needed for Muscle spasms. Indications: Muscle Spasm 15 Tablet 12/04/19 24 Active methylPREDNISol one (MEDROL DOSPACK) 4 MG Tablet Therapy Pack See product package insert for dosing schedule 21 Tablet 12/04/19 24 Active Active Problems Problem Noted Date Diagnosed Date Chronic idiopathic constipation 01/13/2019 [place] 01/13/2019 Physical exam, annual (Adult) 04/20/2018 Mild intermittent asthma without complication LOLLY on CPAP 04/20/2018 DDD (degenerative disc disease), thoracolumbar 1 04/02/2010 Resolved Problems Problem Noted Date Diagnosed Date Resolved Date Cough 04/18/2018 09/02/2020 Influenza A 04/18/2018 09/02/2020 Immunizations Immunization Administration Dates Next Due Covid-19, Mrna, Lnp-s, Pf, 30 Mcg/0.3 Ml Dose (P fizer) 10/28/2020,10/15/2020 Hepatitis A Vaccine 05/01/2014 Pneumococcal Vaccine Adult - 23 Valent 2 TB Skin Test 10/21/2019 TDAP Vaccine 09/11/2018 Tuberculin Skin Test; Purifi ed Protein Derivative Solutiol 10/21/2019 Family History Medical History Relation Name Comments Diabetes Brother 1 Gout Brother 1 Obstructive Sleep Apnea Brother 1 Diabetes Brother 2 Gout Brother 2 Obstructive Sleep Apnea Brother 2 Other-comment Brother 2 Diverticulitis Arthritis Father Diabetes Father Gout Father Hypertension Father Arthritis Mother Hypertension Mother Breast Cancer Paternal Grandmother Cancer Paternal Uncle thyroid Relation Name Status Comments Brother 1 Alive Brother 2 Alive Father Mother Alive Paternal Grandmother heart t rouble Paternal Uncle Social History Tobacco Use Types Packs/Day Years Used Date Smoking Tobacco: Former Cigarettes 1 10 2 2012 Smokeless Tobacco: Never Tobacco Cessation:Counseling Given: Not Answered Alcohol Use Standard Drinks/Week Comments Yes 0 (1 standard drink = 0.6 oz pur e alcohol) rarely PHQ-2 Answer Date Recorded Total Score - Questions 1-9 0 03/24 Sexually Active Control Partners Comments Yes Natural Family Planning Female Sex and Gender Information Value Date Recorded Sex Assigned at Not on file Legal Sex Male 8:47 PM CDT Gender Identity Not on file Sexual Orientation Not on file 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 Not on file Not on file Last Filed Vital Signs Vital Sign Reading Time Taken Comments Blood Pressure 128/68 12/04/2023 6:14 PM CDT Pulse 75 12/04/2023 6:14 PM CDT Temperature 36.2 C (97.2 F) 12/04/2023 6:14 PM CDT Respiratory Rate 17 12/04/2023 6:14 PM CDT Oxygen Saturation 97% 12/04/2023 6:14 PM CDT Inhaled Oxygen Concentration - - Weight 172.4 kg (380 lb) 12/04/2023 6:14 PM CDT Height 188 cm (6' 2) 12/04/2023 6:14 PM CDT Body Mass Index 48.79 12/04/2023 6:14 PM CDT Plan of Treatment Health Maintenance Due Date Last Done Comments Hepatitis C Virus (HCV) Screening 1980 Hepatitis B Immunization (1 of 3 - 19+ 3-dose series) 04/28/1999 Human Papillomavirus (HPV) Immunization (1 - 3-dose SCDM series) 04/28/2007 Pneumococcal Immunization Combined (2 of 2 - PCV) 08/19/2022 08/19/2021 SARS-COV-2 Immunization ( season) 2023 07/27/2021, 10/28/2020, 10/15/2020, Additional history exists Influenza Immunization (#1) 2024 Td Immunization Every 10 Years (Adults With 1 Tdap) 09/11/2028 09/11/2018 Respiratory Syncytial Virus (RSV) Immunization (Adult) (1 - 1-dose 75+ series) 04/28/2055 Meningococcal Immunization (ACWY) Aged Out No longer eligible based on patient's age to complete this topic Rotavirus Immunization Aged Out No lo nger eligible based on patient's age to complete this topic Insurance [employer] Care Teams Probate Clerk Relationship Specialty Start Date End Date Provider, Unknown UNKNOWN PCP - General 12/04/23
--- OUTSIDE RECORDS SUMMARY | 2024-09-25 11:48 | XMS_ITS | Clinical Summary ---
Author Organization [facility] Address [address] [place] [id number] Phone Care Team Providers Care Fence Rider Name Role Phone Unavailable Primary Care Provider Unavailabl e Allergies No known active allergies Medications tamsulosin (FLOMAX) 0.4 mg capsule Take 0.4 mg by mouth daily. Active fluticasone propionate (FLONASE) 50 mcg/spray [place], Suspension nasal inhaler Administer 2 Sprays in each nostril Continuous as needed for Rhinitis. Active cetirizine (ZyrTEC) 10 mg tablet Take 10 mg by mouth Continuous as needed for Allergies. Active docusate sodium (COLACE) 100 mg capsule Take 1 Capsule (100 mg) by mouth 2 times daily. 30 Capsule 04/09/2024 10:09 AM BREWERY CELLAR WORKER 5 Active ondansetron (ZOFRAN ODT) 4 mg Tablet, Rapid Dissolve Dissolve 1 Tablet (4 mg) on top of tongue then swallow with saliva every 8 hours as needed for Nausea or Vomiting 40 Tablet 04/09/2024 10:09 AM BREWERY CELLAR WORKER 5 Active omeprazole (PriLOSEC) 40 mg Capsule, Delayed Release(E.C.) Take 1 Capsule (40 mg) by mouth daily. Open capsule and pour contents into sugar-free jell-O or other food of similar consistency. 90 Capsule 04/09/2024 10:09 AM BREWERY CELLAR WORKER 5 Active Active Problems Problem Noted Date Diagnosed Date Morbid obesity with BMI of 50.0-59.9, adult 03/23 Encounters Date Type Department Care Team Description 09/18/2024 2:20 PM CDT - 09/18/2024 11:59 PM CDT Hospital Encounter [facility] MRI [address] [place] [address] Nick Gomez MD Discharge Disposition: Home or Self Care 09/18/2024 2:20 PM CDT - 09/18/2024 11:59 PM CDT Hospital Encounter [facility] MRI [address] [place] [address] Nick Gomez MD Discharge Disposition: Home or Self Care 07/23/2024 External Device Data [facility] ABSTRACTION Provider, Abstract 06/25/2024 External Device Data [facility] ABSTRACTION Provider, Abstract from Last 3 Months Family History Medical History Relation Name Comments Colon Cancer Neg Hx Social History Tobacco Use Types Packs/Day Years Used Date Smoking Tobacco: Former Cigarettes Tobacco Cessation:Counseling Given: Not Answered Alcohol Use Standard Drinks/Week Comments Yes 0 (1 standard drink = 0.6 oz pur e alcohol) ocass Sex and Gender Information Value Date Recorded Sex Assigned at Not on file Legal Sex Male 9:54 PM CDT Gender Identity Not on file Sexual Orientation Not on file Last Filed Vital Signs Vital Sign Reading Time Taken Comments Blood Pressure 129/72 04/09/2024 7:14 AM BREWERY CELLAR WORKER Pulse 64 04/09/2024 7:14 AM BREWERY CELLAR WORKER Temperature 36.8 C (98.2 F) 04/09/2024 7:14 AM BREWERY CELLAR WORKER Respiratory Rate 20 04/09/2024 7:14 AM BREWERY CELLAR WORKER Oxygen Saturation 99% 04/09/2024 7:14 AM BREWERY CELLAR WORKER Inhaled Oxygen Concentration - - Weight 171.4 kg (377 lb 12.8 oz) 04/08/2024 5:39 AM BREWERY CELLAR WORKER Height 185.4 cm (6' 1) 03/27/2024 12:0 9 PM BREWERY CELLAR WORKER Body Mass Index 49.84 03/27/2024 12:09 PM BREWERY CELLAR WORKER Plan of Treatment Health Maintenance Due Date Last Done Comments HPV VACCINES (1 - Male 3-dose series) 04/28/1995 DIABETES ANNUAL FOOT EXAM 1998 DIABETES ANNUAL RETINAL EXAM 1998 DIABETES MICROALBUMIN ANNUAL SCREEN 1998 LDL CHOLESTEROL ANNUAL 1998 HEPATITIS B VACCINES (1 of 3 - 19+ 3-dose series) 04/28/1999 COVID-19 Vaccine ( season) 2023 07/27/2021, 10/28/2020, 10/15/2020 DIABETES HBA1C Q 6 MONTHS 04/19/2024 10/18/2023 INFLUENZA VACCINE (#1) 2024 DTAP/TDAP/TD VACCINES (2 - T d or Tdap) 09/11/2028 09/11/2018 Preventative Visit- Commercial Completed 09/11/2024 , 09/20/2023 Procedures Procedure Name Priority Date/Time Associated Diagnosis Comments MRI KNEE WO CONTRAST LEFT Routine 09/18/2024 3:33 PM CDT Pain in right knee Pain in left knee MRI KNEE WO CONTRAST RIGHT Routine 09/18/2024 3:32 PM CDT Pain in right knee Pain in left knee from Last 3 Months Results * MRI KNEE WO CONTRAST LEFT (09/18/2024 3:33 PM CDT) Anatomical Region Laterality Modality Lower Extremity Magnetic Resonan ce 09/18/2024 3:35 PM CDT Impressions 09/18/2024 4:02 PM CDT IMPRESSION: 1. Tear of the posterior horn of the medial meniscus at the posterior root attachment. 2. There is a 12 x 7 mm osteochondral abnormality of the medial femoral condyle that could represent a subchondral fracture, OCD lesion, or subchondral cyst with prominent marrow edema. DICTATION LOCATION: Location 1 - [facility] 09/18/2024 4:02 PM CDT MRI KNEE WO CONTRAST LEFT DATE: 09/18/2024 3:33 PM HISTORY: 44-year-old male with medial knee pain. TECHNIQUE: Multiplanar, multisequence 1.5T MRI of the left knee without IV contrast. COMPARISON: None FINDINGS: CRUCIATE AND COLLATERAL LIGAMENTS: * ACL: Intact * PCL: Intact * MCL: Intact * LATERAL STRUCTURES: The iliotibial band, fibular collateral ligament, and biceps femoris tendon are intact. POSTEROLATERAL CORNER: * Popliteus tendon: Mild tendinosis * Popliteofibular ligament: Not well seen. * Proximal tibiofibular joint: Within normal limits. EXTENSOR MECHANISM: * Quadriceps tendon: Within normal limits. * Patellar tendon: Intact. SYNOVIUM: * Joint fluid: Within normal limits. * Bursa: Tiny Miller's cyst POSTEROMEDIAL CORNER: * Semimembranosus tendon: Mild tendinosis MEDIAL COMPARTMENT: * Joint space: Moderate joint space narrowing. * Cartilage: Mild diffuse chondrosis over the femoral condyle weightbearing surface and a portion of the tibial plateau. 12 x 7 mm osteochondral abnormality of the femoral condyle. * Medial meniscus: Diminutive posterior horn of the posterior root attachment compatible with tear. Extrusion of the meniscal body by 5 mm. LATERAL COMPARTMENT: * Joint space: Small marginal osteophytes * Cartilage: No focal defect. * Lateral meniscus: Intact PATELLOFEMORAL COMPARTMENT: * Joint space / Alignment: Within normal limits * Patellar cartilage: Fissuring over the apex inferiorly with mild subchondral marrow edema. * Femoral trochlear cartilage: Minimal focal chondrosis laterally. * Hoffa's fat pad: Mild edema/inflammation MARROW (other): Moderate marrow edema throughout the medial femoral condyle. MUSCLES / SOFT TISSUES: Mild increased T2 signal in the lateral gastrocnemius can be due to strain or denervation edema.. Procedure Note Tl Mitchell MD - 09/18/2024 MRI KNEE WO CONTRAST LEFT DATE: 09/18/2024 3:33 PM HISTORY: 44-year-old male with medial knee pain. TECHNIQUE: Multiplanar, multisequence 1.5T MRI of the left knee without IV contrast. COMPARISON: None FINDINGS: CRUCIATE AND COLLATERAL LIGAMENTS: * ACL: Intact * PCL: Intact * MCL: Intact * LATERAL STRUCTURES: The iliotibial band, fibular collateral ligament, and biceps femoris tendon are intact. POSTEROLATERAL CORNER: * Popliteus tendon: Mild tendinosis * Popliteofibular ligament: Not well seen. * Proximal tibiofibular joint: Within normal limits. EXTENSOR MECHANISM: * Quadriceps tendon: Within normal limits. * Patellar tendon: Intact. SYNOVIUM: * Joint fluid: Within normal limits. * Bursa: Tiny Miller's cyst POSTEROMEDIAL CORNER: * Semimembranosus tendon: Mild tendinosis MEDIAL COMPARTMENT: * Joint space: Moderate joint space narrowing. * Cartilage: Mild diffuse chondrosis over the femoral condyle weightbearing surface and a portion of the tibial plateau. 12 x 7 mm osteochondral abnormality of the femoral condyle. * Medial meniscus: Diminutive posterior horn of the posterior root attachment compatible with tear. Extrusion of the meniscal body by 5 mm. LATERAL COMPARTMENT: * Joint space: Small marginal osteophytes * Cartilage: No focal defect. * Lateral meniscus: Intact PATELLOFEMORAL COMPARTMENT: * Joint space / Alignment: Within normal limits * Patellar cartilage: Fissuring over the apex inferiorly with mild subchondral marrow edema. * Femoral trochlear cartilage: Minimal focal chondrosis laterally. * Hoffa's fat pad: Mild edema/inflammation MARROW (other): Moderate marrow edema throughout the medial femoral condyle. MUSCLES / SOFT TISSUES: Mild increased T2 signal in the lateral gastrocnemius can be due to strain or denervation edema.. IMPRESSION: 1. Tear of the posterior horn of the medial meniscus at the posterior root attachment. 2. There is a 12 x 7 mm osteochondral abnormality of the medial femoral condyle that could represent a subchondral fracture, OCD lesion, or subchondral cyst with prominent marrow edema. DICTATION LOCATION: [address] [place] External Provider [facility] MR ORDERABLES Final Re sult * MRI KNEE WO CONTRAST RIGHT (09/18/2024 3:32 PM CDT) Anatomical Region Laterality Modality Lower Extremity Magnetic Resonan ce 09/18/2024 3:33 PM CDT Impressions 09/18/2024 4:06 PM CDT IMPRESSION: 1. Radial tear of the posterior horn of the medial meniscus with additional horizontal undersurface tear of the remaining posterior horn. 2. Medial and patellofemoral joint degenerative changes. Small joint effusion and mild synovitis. DICTATION LOCATION: [address] Narrative 09/18/2024 4:06 PM CDT MRI KNEE WO CONTRAST RIGHT DATE: 09/18/2024 3:32 PM HISTORY: 44-year-old male with medial knee pain TECHNIQUE: Multiplanar, multisequence 1.5T MRI of the right knee without IV contrast. COMPARISON: None FINDINGS: CRUCIATE AND COLLATERAL LIGAMENTS: * ACL: Intact * PCL: Intact * MCL: Intact * LATERAL STRUCTURES: The iliotibial band, fibular collateral ligament, and biceps femoris tendon are intact. POSTEROLATERAL CORNER: * Popliteus tendon: Mild tendinosis * Popliteofibular ligament: Not well seen. * Proximal tibiofibular joint: Within normal limits. EXTENSOR MECHANISM: * Quadriceps tendon: Within normal limits. * Patellar tendon: Intact. SYNOVIUM: * Joint fluid: Small effusion. Mild synovitis. * Bursa: Within normal limits. POSTEROMEDIAL CORNER: * Semimembranosus tendon: Intact MEDIAL COMPARTMENT: * Joint space: Mild narrowing with small marginal osteophytes. * Cartilage: No focal defect. * Medial meniscus: Complex tear of the posterior horn with a radial tear at the posterior root attachment and a horizontal tear of the remainder of the posterior horn. LATERAL COMPARTMENT: * Joint space: Within normal limits * Cartilage: No focal defect. * Lateral meniscus: Intact PATELLOFEMORAL COMPARTMENT: * Joint space / Alignment: Within normal limits * Patellar cartilage: Moderate grade focal chondrosis over the lateral facet. Fissuring at the apex. Small subchondral cysts.. * Femoral trochlear cartilage: No focal chondral defect * Hoffa's fat pad: Mild edema/inflammation. MARROW (other): Within normal limits. MUSCLES / SOFT TISSUES: Diffuse soft tissue edema about the knee greater medially and anteriorly. Procedure Note Tl Mitchell MD - 09/18/2024 MRI KNEE WO CONTRAST RIGHT DATE: 09/18/2024 3:32 PM HISTORY: 44-year-old male with medial knee pain TECHNIQUE: Multiplanar, multisequence 1.5T MRI of the right knee without IV contrast. COMPARISON: None FINDINGS: CRUCIATE AND COLLATERAL LIGAMENTS: * ACL: Intact * PCL: Intact * MCL: Intact * LATERAL STRUCTURES: The iliotibial band, fibular collateral ligament, and biceps femoris tendon are intact. POSTEROLATERAL CORNER: * Popliteus tendon: Mild tendinosis * Popliteofibular ligament: Not well seen. * Proximal tibiofibular joint: Within normal limits. EXTENSOR MECHANISM: * Quadriceps tendon: Within normal limits. * Patellar tendon: Intact. SYNOVIUM: * Joint fluid: Small effusion. Mild synovitis. * Bursa: Within normal limits. POSTEROMEDIAL CORNER: * Semimembranosus tendon: Intact MEDIAL COMPARTMENT: * Joint space: Mild narrowing with small marginal osteophytes. * Cartilage: No focal defect. * Medial meniscus: Complex tear of the posterior horn with a radial tear at the posterior root attachment and a horizontal tear of the remainder of the posterior horn. LATERAL COMPARTMENT: * Joint space: Within normal limits * Cartilage: No focal defect. * Lateral meniscus: Intact PATELLOFEMORAL COMPARTMENT: * Joint space / Alignment: Within normal limits * Patellar cartilage: Moderate grade focal chondrosis over the lateral facet. Fissuring at the apex. Small subchondral cysts.. * Femoral trochlear cartilage: No focal chondral defect * Hoffa's fat pad: Mild edema/inflammation. MARROW (other): Within normal limits. MUSCLES / SOFT TISSUES: Diffuse soft tissue edema about the knee greater medially and anteriorly. IMPRESSION: 1. Radial tear of the posterior horn of the medial meniscus with additional horizontal undersurface tear of the remaining posterior horn. 2. Medial and patellofemoral joint degenerative changes. Small joint effusion and mild synovitis. DICTATION LOCATION: Location [address] [place] [address] External Provider [facility] MR ORDERABLES Final Re sult from Last 3 Months Insurance [facility] [employer] (INTERNAL) [facility] Internal Plans Advance Directives For more information, please contact: [phone] * Full Code (Latest Code Status on File) Date Activated Date Inactivated Comments 04/08/2024 12:22 PM 04/09/2024 12:25 PM * Full Code Date Activated Date Inactivated Comments 04/08/2024 5:40 AM 04/08/2024 12:22 PM * Full Code Date Activated Date Inactivated Comments 02/23/2024 6:41 AM 02/23/2024 9:42 AM
--- OUTSIDE RECORDS SUMMARY | 2024-09-25 11:48 | XMS_ITS | Encounter Summary ---
Author Organization [facility] Address [address] [place] [address] Phone Care Team Providers Care Enterprise Engineer Name Role Phone Rogelio Cornejo MD Primary Care Provider [phone] Provider, Unknown Primary Care Provider Unavaila ble Reason for Visit * Reason Comments Medication Refill Encounter Details Date Type Department Care Team (Late st Contact Info) Description 10/07/2019 Refill [facility] [address] [place] [address] Rogelio Cornejo MD [address] [address] Medication Refill Social History Tobacco Use Types Packs/Day Years Used Date Smoking Tobacco: Former Cigarettes 1 2012 Smokeless Tobacco: Never Alcohol Use Standard Drinks/Week Comments Yes 0 [...] 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 No / Unsure 09/16/2019 12:54 PM CDT documented as of this encounter Miscellaneous Notes * Telephone Encounter - Rogelio Cornejo MD - 10/09/2019 9:42 AM CDT Prescription pending signature * Telephone Encounter - Nati Wright RN - 10/09/2019 9:39 AM CDT 7 days ago (10/02/2019) traMADol (ULTRAM) 50 MG Tablet TAKE 1 TABLET BY MOUTH EVERY 6 HOURS NEEDED FOR SEVERE PAIN Dispense: 10 Tab? Refills: 0? Start: 10/02/2019? By: Rogelio Cornejo MD ? Encounter Notes to pharmacy: Not to exceed 5 additional fills before 11/09/2019 DX Code Needed ??. documented in this encounter Plan of Treatment Not on file documented as of this encounter Visit Diagnoses Diagnosis Acute right-sided low back pain with right-sided sciatica documented in this encounter Additional Health Concerns Infection Onset Date Last Indicated Resolved Time COVID - 19 09/02/2020 09/02/2020 09/03/2020 8:31 AM CDT COVID - 19 02/24/2021 02/24/2021 03/16/2021 12:1 7 AM ENTRY WRITER Assessment Noted Time PHQ-9 Depression Total Score: 0 04/15/19 9:59 AM ENTRY WRITER documented as of this encounter Care Teams Enterprise Engineer Relationship Specialty Start Date End Date Rogelio Cornejo MD [address] [place] [address] PCP - General Family Medicine 04/20/18 01/06/20 Provider, Unknown UNKNOWN PCP - General 12/04/23 documented as of this encounter
--- OUTSIDE RECORDS SUMMARY | 2024-09-25 11:48 | XMS_ITS | Clinical Summary ---
Author Organization [facility] Address [address] [place] [address] [place] [address] Care Team Providers Care Aircraft Power Plant Assembler Name Role Phone Unavailable Primary Care Provider Unavailabl e Source Comments [facility],non-owned Affiliates and Associated Physician Practices is amultiple site organization consisting of ambulatory clinics and hospital sitesin [place], [place], [place] and [place]. This disclosure is being madepursuant to the Care Everywhere program and may not contain all information available regarding this patient. Last updated 17.[employer] Allergies No known active allergies Medications * Be aware that medications may not be up to date on this document. Alwaysverify current medications with the patient. diclofenac sodium (VOLTAREN) 75 MG tablet Take 1 Tab by mouth 3 times daily. 90 Tab 4 01/26/2011 Active NAPROXEN PO Active gabapentin (NEURONTIN) 300 MG capsule Take 300 mg by mouth 2 times daily. 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 Gender Identity Not on file Sexual Orientation Not on file Last Filed Vital Signs Vital Sign Reading Time Taken Comments Blood Pressure - - Pulse - - Temperature - - Respiratory Rate - - Oxygen Saturation - - Inhaled Oxygen Concentration - - Weight 154.2 kg (340 lb) 01/30/2011 10:34 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 Height 185.4 cm (6' 1) 01/30/2011 10:34 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 Body Mass Index 44.86 01/30/2011 10:34 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 Plan of Treatment Health Maintenance Due Date Last Done Comments LIPID TESTING 1980 HIV SCREENING 04/28/1995 HEPATITIS C SCREENING 04/23/1998 DTAP/TDAP/TD VACCINES (1 - Tdap) 04/28/1999 HEPATITIS B VACCINE (1 of 3 - 19+ 3-dose series) 04/28/1999 HPV VACCINE (1 - 3-dose SCDM series) 04/28/2007 COVID-19 VACCINE (1 - 2023-2 5 season) 2023 DEPRESSION SCREENING 02/21/2024 INFLUENZA VACCINE (#1) 2024 ZOSTER VACCINE (1 of 2) 2030 HIB VACCINE Aged Out No longer eligi ble based on patient's age to complete this topic MENINGOCOCCAL (Group B) VACC INE SHARED DECISION-MAKING Aged Out No longer eligibl e based on patient's age to complete this topic MENINGOCOCCAL GROUPS A/C/Y/W VACCINE Aged Out No longer eligible b ased on patient's age to complete this topic PNEUMOCOCCAL VACCINE Aged Out No long er eligible based on patient's age to complete this topic Insurance [facility] CIG[employer]
--- OUTSIDE RECORDS SUMMARY | 2024-09-25 11:48 | XMS_ITS | Encounter Summary ---
Author Organization [facility] Address [address] 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 No / Unsure 09/16/2019 12:54 PM CDT documented as of this encounter Miscellaneous Notes * Telephone Encounter - Rogelio Cornejo MD - 10/02/2019 10:24 AM CDT Prescription pending signature * Telephone Encounter - Nati Wright RN - 10/02/2019 10:01 AM CDT 4 months ago (05/13/2019) traMADol (ULTRAM) 50 MG Tablet TAKE 1 TABLET BY MOUTH EVERY 6 HOURS NEEDED FOR SEVERE PAIN. Dispense: 10 Tab? Refills: 0? Start: 05/13/2019? By: Rogelio Cornejo MD ? 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
--- OUTSIDE RECORDS SUMMARY | 2024-09-25 11:48 | XMS_ITS | Encounter Summary ---
Author Organization [facility] Address [address] 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 No / Unsure 10/18/2019 3:57 PM CDT documented as of this encounter Miscellaneous Notes * Telephone Encounter - Rogelio Cornejo MD - 10/17/2019 11:54 AM CDT Prescription pending signature * Telephone Encounter - Gale Sylvester RN - 10/17/2019 9:14 AM CDT Routing to provider per protocol as medication(s) can not be signed by a nurse for approval. Medication Dispense History (from 06/19/2019 to 10/15/2019) traMADol HCl Dispensed Written Strength Quantity Refills Days Supply Provider Pharmacy TRAMADOL 10/02/2019 10/02/2019 50 MG 10 0 2 , ROGELIO CORNEJO [facility] Pharmacy External Sources Source Last Checked for Updates Status [facility] 10/15/2019 7:03 AM History Response Filed documented in this encounter Plan of Treatment Not on file documented as of this encounter Visit Diagnoses Diagnosis Acute right-sided low back pain with right-sided sciatica Acute gout involving toe of right foot, unspecified cause documented in this encounter Additional Health Concerns Infection Onset Date Last Indicated Resolved Time COVID - 19 09/02/2020 09/02/2020 09/03/2020 8:31 AM CDT COVID - 19 02/24/2021 02/24/2021 03/16/2021 12:1 7 AM 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
--- OUTSIDE RECORDS SUMMARY | 2024-09-25 11:48 | XMS_ITS | Patient Health Record ---
Author Organization [facility] Address [address] [place], [place] [id number] Care Team Providers Care Child Welfare Caseworker Name Role Phone Derek Xie DO Unavailable [phone] Taiwo SALGADO Nguyen Unavailable [phone] Allergies No Known Allergies Results Component Value Reference Range Notes VITAMIN B1 (THIAMINE), SERUM /PLASMA, LC/MS/MS (27565) Reviewed date:03/29/2024 01:47:29 PM Interpretation: Performing Lab:Reh[place], [facility] [place] [address], [address]WgmkyenwrwEW[address] Lisy Cerna MD,PhD Notes/Report: NON-FASTING; NON-FASTING; NON-FASTING; NON-FASTING; NON-FAST VITAMIN B1 (THIAMINE), SERUM/PLASMA, LC/MS/MS 8 8-30 nmol/L (Note) Vitamin supplementation within 24 hours prior to blood draw may affect the accuracy of the results. This test was developed and its analytical performance characteristics have been determined by [facility]. It has not been cleared or approved by FDA. This assay has been validated pursuant to the CLIA regulations and is used for clinical purposes. med fusion [address] [facility] [address] [facility] [address] Lisy Cerna MD, PhD ZINC (945) Reviewed date:03/29/2024 01:47:29 PM Interpretation: Performing Lab:KAILEE, [facility] [address], [facility] MinneapolisFkleGX[address] Rony Guerin Notes/Report: NON-FASTING; NON-FASTING; NON-FASTING; NON-FASTING; NON-FAST ZINC 83 60-130 mcg/dL This test was developed and its analytical performance characteristics have been determined by [facility]. It has not been cleared or approved by the FDA. This assay has been validated pursuant to the CLIA regulations and is used for clinical purposes. VITAMIN D,25-OH,TOTAL,IA (17 306) Reviewed date:03/29/2024 02:55:40 PM Interpretation: Performing Lab:[facility] WALLACE-Ulozcg74559Paeg SneedaKS[address] Lon Lee MD Notes/Report: NON-FASTING; NON-FASTING; NON-FASTING; NON-FASTING; NON-FAST VITAMIN D,25-OH,TOTAL,IA 21 30-100 ng/mL Vitamin D Status 25-OH Vitamin D: Deficiency: <20 ng/mL Insufficiency: 20 - 29 ng/mL Optimal: > or = 30 ng/mL For 25-OH Vitamin D testing on patients on D2-supplementation and patients for whom quantitation of D2 and D3 fractions is required, the [facility]ure[facility](TM) 25-OH VIT D, (D2,D3), LC/MS/MS is recommended: order code 18735 (patients >2yrs). See Note 1 Note 1 For additional information, please refer to http://education.[employer].com/faq/BVR637 (This link is being provided for informational/ educational purposes only.) TSH (899) Reviewed date:03/29/2024 01:47:29 PM Interpretation: Performing Lab:[facility] WALLACE-Gslxzc72922 [address] AuqbfeJE[address] Lon Lee MD Notes/Report: NON-FASTING; NON-FASTING; NON-FASTING; NON-FASTING; NON-FAST TSH 1.44 0.40-4.50 mIU/L VITAMIN B12/FOLATE, SERUM PA JANIS (8784) Reviewed date:03/29/2024 01:47:29 PM Interpretation: Performing Lab:[facility] WALLACE-Vxzvhx10195 O[address] AminIotpoqQD[address] Lon Lee MD Notes/Report: NON-FASTING; NON-FASTING; NON-FASTING; NON-FASTING; NON-FAST VITAMIN B12 863 682-2356 pg/mL Please Note: Although the reference range for vitamin B12 is 200-1100 pg/mL, it has been reported that between 5 and 10% of patients with values between 200 and 400 pg/mL may experience neuropsychiatric and hematologic abnormalities due to occult B12 deficiency; less than 1% of patients with values above 400 pg/mL will have symptoms. FOLATE, SERUM 6.6 Reference Range Low: <3.4 Borderline: 3.4-5.4 Normal: >5.4 HEMOGLOBIN A1c (496) Reviewed date:03/29/2024 02:55:10 PM Interpretation: Performing Lab:[facility] Center[facility]oyet[address] [address] Gosia Estrada LyzidmbII[address] Lon Lee Notes/Report: NON-FASTING; NON-FASTING; NON-FASTING; NON-FASTING; NON-FAST HEMOGLOBIN A1c 6.5 <5.7 % of total Hgb For someone without known diabetes, a hemoglobin A1c value of 6.5% or greater indicates that they may have diabetes and this should be confirmed with a follow-up test. For someone with known diabetes, a value <7% indicates that their diabetes is well controlled and a value greater than or equal to 7% indicates suboptimal control. A1c targets should be individualized based on duration of diabetes, age, comorbid conditions, and other considerations. Currently, no consensus exists regarding use of hemoglobin A1c for diagnosis of diabetes for children. CBC (H/H, RBC, INDICES, WBC, PLT) (1759) Reviewed date:03/29/2024 01:47:29 PM Interpretation: Performing Lab:[facility] WALLACE-Bxxque47231 O[address] AminPupyqoJX[address] Lon Lee MD Notes/Report: NON-FASTING; NON-FASTING; NON-FASTING; NON-FASTING; NON-FAST WHITE BLOOD CELL COUNT 6.2 3.8-10.8 Thousand/ uL RED BLOOD CELL COUNT 4.94 4.20-5.80 Million/uL HEMOGLOBIN 14.9 13.2-17.1 g/dL HEMATOCRIT 44.7 38.5-50.0 % MCV 90.5 80.0-100.0 fL MCH 30.2 27.0-33.0 pg MCHC 33.3 32.0-36.0 g/dL For adults, a slight decrease in the calculated MCHC value (in the range of 30 to 32 g/dL) is most likely not clinically significant; however, it should be interpreted with caution in correlation with other red cell parameters and the patient's clinical condition. RDW 12.2 11.0-15.0 % PLATELET COUNT 247 140-400 Thousand/uL MPV 9.8 7.5-12.5 fL COMPREHENSIVE METABOLIC PANE L (91696) Reviewed date:03/29/2024 02:55:05 PM Interpretation: Performing Lab:[place] [facility] Precious-Nwheil92333 O[address] AminJeaxcgCU[address] Lon Lee MD Notes/Report: NON-FASTING; NON-FASTING; NON-FASTING; NON-FASTING; NON-FAST GLUCOSE 127 65-99 mg/dL Fasting reference interval For someone without known diabetes, a glucose value >125 mg/dL indicates that they may have diabetes and this should be confirmed with a follow-up test. UREA NITROGEN (BUN) 21 7-25 mg/dL CREATININE 0.97 0.60-1.29 mg/dL EGFR 99 > OR = 60 mL/min/1.73m2 BUN/CREATININE RATIO SEE NOTE: 6-22 (calc) Not Reported: BUN and Creatinine are within reference range. SODIUM 137 135-146 mmol/L POTASSIUM 4.3 3.5-5.3 mmol/L CHLORIDE 102 98-110 mmol/L CARBON DIOXIDE 30 20-32 mmol/L CALCIUM 9.2 8.6-10.3 mg/dL PROTEIN, TOTAL 6.7 6.1-8.1 g/dL ALBUMIN 4.1 3.6-5.1 g/dL GLOBULIN 2.6 1.9-3.7 g/dL (calc) ALBUMIN/GLOBULIN RATIO 1.6 1.0-2.5 (calc) BILIRUBIN, TOTAL 1.0 0.2-1.2 mg/dL ALKALINE PHOSPHATASE 50 36-130 U/L AST 21 10-40 U/L ALT 43 9-46 U/L IRON, TIBC AND FERRITIN PANE L (5616) Reviewed date:03/29/2024 02:55:46 PM Interpretation: Performing Lab:[place] [facility]-Jjilvc[address]96 [address], NmxyjlDY[address] Lon Lee MD Notes/Report: NON-FASTING; NON-FASTING; NON-FASTING; NON-FASTING; NON-FAST IRON, TOTAL 155 50-180 mcg/dL IRON BINDING CAPACITY 281 250-425 mcg/dL (frieda c) % SATURATION 55 20-48 % (calc) FERRITIN 265 38-380 ng/mL VITAMIN B1 (THIAMINE), SERUM /PLASMA, LC/MS/MS (73056) (Not yet reviewed by provider) Interpretation: Performing Lab:Z3E, [facility]ev[address] [place] [address], [address], IfyuuojfqtEY[address] Lisy Cerna MD,PhD Notes/Report: NON-FASTING; NON-FASTING; NON-FASTING; NON-FASTING; NON-FAST FASTING:NO FASTING: NO VITAMIN B1 (THIAMINE), SERUM/PLASMA, LC/MS/MS 26 8-30 nmol/L (Note) Vitamin supplementation within 24 hours prior to blood draw may affect the accuracy of the results. This test was developed and its analytical performance characteristics have been determined by [facility]. It has not been cleared or approved by FDA. This assay has been validated pursuant to the CLIA regulations and is used for clinical purposes. MD[facility] [address] [address],[address] [facility] [address] Lisy Cerna MD, PhD ZINC (945) (Not yet reviewed by provider) Interpretation: Performing Lab:[facility] [id number] Geremias Estrada, FfpjdwiurJM[address] Keyon Dominguez M.D.,PhD Notes/Report: NON-FASTING; NON-FASTING; NON-FASTING; NON-FASTING; NON-FAST FASTING:NO FASTING: NO ZINC 86 60-130 mcg/dL This test was developed and its analytical performance characteristics have been determined by [facility] [place]. It has not been cleared or approved by the U.S. Food and Drug Administration. This assay has been validated pursuant to the CLIA regulations and is used for clinical purposes. VITAMIN D,25-OH,TOTAL,IA (17 306) (Not yet reviewed by provider) Interpretation: Performing Lab:[place] [facility]-Qrzlzd[address]32 [address], OqtjhuUT[address] Lon Lee MD Notes/Report: NON-FASTING; NON-FASTING; NON-FASTING; NON-FASTING; NON-FAST FASTING:NO FASTING: NO VITAMIN D,25-OH,TOTAL,IA 68 30-100 ng/mL Vitamin D Status 25-OH Vitamin D: Deficiency: <20 ng/mL Insufficiency: 20 - 29 ng/mL Optimal: > or = 30 ng/mL For 25-OH Vitamin D testing on patients on D2-supplementation and patients for whom quantitation of D2 and D3 fractions is required, the [facility](TM) 25-OH VIT D, (D2,D3), LC/MS/MS is recommended: order code 13565 (patients >2yrs). See Note 1 Note 1 For additional information, please refer to http://education.[employer]/faq/DPK149 (This link is being provided for informational/ educational purposes only.) TSH (899) (Not yet reviewed by provider) Interpretation: Performing Lab:[facility] WALLACE-Kugwbm[address], ZefxfbVU[address] Lon Lee MD Notes/Report: NON-FASTING; NON-FASTING; NON-FASTING; NON-FASTING; NON-FAST FASTING:NO FASTING: NO TSH 1.78 0.40-4.50 mIU/L VITAMIN B12/FOLATE, SERUM PA JANIS (2858) (Not yet reviewed by provider) Interpretation: Performing Lab:[facility] WALLACE-Mpcmgi[address]697 [address], YflrciIG[address] Lon Lee MD Notes/Report: NON-FASTING; NON-FASTING; NON-FASTING; NON-FASTING; NON-FAST FASTING:NO FASTING: NO VITAMIN B12 361 370-7170 pg/mL Please Note: Although the reference range for vitamin B12 is 200-1100 pg/mL, it has been reported that between 5 and 10% of patients with values between 200 and 400 pg/mL may experience neuropsychiatric and hematologic abnormalities due to occult B12 deficiency; less than 1% of patients with values above 400 pg/mL will have symptoms. FOLATE, SERUM 15.9 Reference Range Low: <3.4 Borderline: 3.4-5.4 Normal: >5.4 HEMOGLOBIN A1c (496) (Not ye t reviewed by provider) Interpretation: Performing Lab:[facility] CORDEROMiss[facility] Medical CenterXkgyo[address] Lon Lee Notes/Report: NON-FASTING; NON-FASTING; NON-FASTING; NON-FASTING; NON-FAST FASTING:NO FASTING: NO HEMOGLOBIN A1c 5.6 <5.7 % of total Hgb For the purpose of screening for the presence of diabetes: <5.7% Consistent with the absence of diabetes 5.7-6.4% Consistent with increased risk for diabetes (prediabetes) > or =6.5% Consistent with diabetes This assay result is consistent with a decreased risk of diabetes. Currently, no consensus exists regarding use of hemoglobin A1c for diagnosis of diabetes in children. According to [place] [employer] Association (ADA) guidelines, hemoglobin A1c <7.0% represents optimal control in non- diabetic patients. Different metrics may apply to specific patient populations. Standards of Medical Care in Diabetes(ADA). CBC (H/H, RBC, INDICES, WBC, PLT) (5170) (Not yet reviewed by provider) Interpretation: Performing Lab:[place] [facility]-Bintxu46230 [address], XprwayVY[address] Lon Lee MD Notes/Report: NON-FASTING; NON-FASTING; NON-FASTING; NON-FASTING; NON-FAST FASTING:NO FASTING: NO WHITE BLOOD CELL COUNT 6.1 3.8-10.8 Thousand/ uL RED BLOOD CELL COUNT 4.84 4.20-5.80 Million/uL HEMOGLOBIN 14.5 13.2-17.1 g/dL HEMATOCRIT 43.5 38.5-50.0 % MCV 89.9 80.0-100.0 fL MCH 30.0 27.0-33.0 pg MCHC 33.3 32.0-36.0 g/dL For adults, a slight decrease in the calculated MCHC value (in the range of 30 to 32 g/dL) is most likely not clinically significant; however, it should be interpreted with caution in correlation with other red cell parameters and the patient's clinical condition. RDW 13.1 11.0-15.0 % PLATELET COUNT 216 140-400 Thousand/uL MPV 9.8 7.5-12.5 fL COMPREHENSIVE METABOLIC PANE L (81350) (Not yet reviewed by provider) Interpretation: Performing Lab:[place] [facility]-[id number] Page AminaKS[address] Lon Lee MD Notes/Report: NON-FASTING; NON-FASTING; NON-FASTING; NON-FASTING; NON-FAST FASTING:NO FASTING: NO GLUCOSE 104 65-139 mg/dL Non-fasting reference interval UREA NITROGEN (BUN) 16 7-25 mg/dL CREATININE 0.82 0.60-1.29 mg/dL EGFR 111 > OR = 60 mL/min/1.73m2 BUN/CREATININE RATIO SEE NOTE: 6-22 (calc) Not Reported: BUN and Creatinine are within reference range. SODIUM 138 135-146 mmol/L POTASSIUM 4.1 3.5-5.3 mmol/L CHLORIDE 102 98-110 mmol/L CARBON DIOXIDE 28 20-32 mmol/L CALCIUM 9.5 8.6-10.3 mg/dL PROTEIN, TOTAL 6.7 6.1-8.1 g/dL ALBUMIN 4.3 3.6-5.1 g/dL GLOBULIN 2.4 1.9-3.7 g/dL (calc) ALBUMIN/GLOBULIN RATIO 1.8 1.0-2.5 (calc) BILIRUBIN, TOTAL 0.9 0.2-1.2 mg/dL ALKALINE PHOSPHATASE 53 36-130 U/L AST 15 10-40 U/L ALT 34 9-46 U/L IRON, TIBC AND FERRITIN PANE L (2524) (Not yet reviewed by provider) Interpretation: Performing Lab:[place], [facility]-Gogfmb78091 Rich [facility], SdnryeOX[address] Lon Lee MD Notes/Report: NON-FASTING; NON-FASTING; NON-FASTING; NON-FASTING; NON-FAST FASTING:NO FASTING: NO IRON, TOTAL 62 50-180 mcg/dL IRON BINDING CAPACITY 204 250-425 mcg/dL (frieda c) % SATURATION 30 20-48 % (calc) FERRITIN 311 38-380 ng/mL Reason For Referral No Information Medications Medication SIG (Take, Route, Frequency, Duration) Notes Start Date End Date Status EQ Stool Softener 100 MG TAKE 1 CAPSULE BY MOUTH IN THE MORNING AND TAKE 1 CASULE IN THE EVENING FOR 30 DAYS; Duration: 30 Active Flomax 0.4 MG 1 capsule Orally Onc e a day Unknown traMADol HCl 50 MG 1 tablet as needed O rally Once a day Unknown Vitamin D3 1.25 MG (07014 UT) 1 capsule Orally Every week; Duration: 30 days 03/06/2024 03/01/2025 Unknown Meloxicam 15 MG 1 tablet Orally Once a day Unknown Victoza 18 MG/3ML as directed Subcutaneous Unknown Omeprazole 40 MG 1 capsule 30 minutes before morning meal Orally Once a day; Duration: 30 days Open capsule and pour contents into SUGAR FREE Jell-O or substance of similar consistency. 07/29/2024 Active Problems Problem Type SNOMED Code ICD Code Onset Dates Problem Status W/U Status Risk Notes Problem Vitamin deficiency (23708481) Vitamin deficiency, unspecified (E56.9) Active confirmed Problem Morbid obesity (disorder) (117245190) Morbid (severe) obesity due to excess calories (E66.01) Active confirmed Problem Gastroesophageal reflux disease with esophagitis (disorder) (346298407) Gastro-esophagea l reflux disease with esophagitis, without bleeding (K21.00) Active confirmed Problem Body mass index 40+ - morbidly obese (903464605) Body mass index [BMI] 50.0-59.9, adult (Z68.43) Active confirmed Problem 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) Active confirmed Problem Generalized arthritis (487524703) Generalized arthritis (M19.90) Active confirmed Problem Hyperglycemia due to type 2 diabetes mellitus (332585031049008) Type 2 diabetes mellitus with hyperglycemia, without long-term current use of insulin (E11.65) Active confirmed Problem Obstructive sleep apnea (79106033) Obstructive sleep apnea (G47.33) Active confirmed Problem Morbid obesity (960185029) Obesity, morbid, BMI 50 or higher (E66.01) Active confirmed Problem Constipation (21375435) Constipation, unspecified constipation type (K59.00) Active confirmed Vital Signs Heart Rate 72 /min 06/05/2024 Temperature 97.1 degrees Fahrenheit 06/05/2024 Height-cm 187.96 cm 06/05/2024 Blood pressure diastolic 78 mm Hg 06/05/2024 Oximetry 98 % 06/05/2024 Weight-kg 148.78 kg 06/05/2024 Height 74 in 06/05/2024 Blood pressure systolic 115 mm Hg 06/05/2024 Weight 328 lbs 06/05/2024 BMI 42.11 kg/m2 06/05/2024 Procedures Procedure Date Ordered Date Performed Result Body Sit e ESOPHAGOGASTRODUODENOSCOPY 12/20/2023 N/A Encounters Encounter Location Date Provider Diagnosis Hanh Miller [facility] [address] [facility] [place] [address] 02/23/2024 Derek iXe [facility] [address] [id number] 06/05/2024 Derek Xie Vitamin deficiency, unspecified E56.9 ; Morbid (severe) obesity due to excess calories E66.01 ; Other specified personal risk factors, not elsewhere classified Z91.89 ; S/P bariatric surgery Z98.84 ; Postoperative intestinal malabsorption K91.2 and Obstructive sleep apnea G47.33 [facility] [address] [id number] 12/20/2023 Derek Xie Obesity, morbid, BMI 50 or higher E66.01 ; Type 2 diabetes mellitus with hyperglycemia, without long-term current use of insulin E11.65 ; Gastro-esophageal reflux disease without esophagitis K21.9 ; Obstructive sleep apnea G47.33 and Generalized arthritis M19.90 [facility] [address] [id number] 12/20/2023 Nguyen [place] Dietary counseling and surveillance Z71.3 and Body mass index [BMI] 50.0-59.9, adult Z68.43 [facility] [address] [id number] 02/22/2024 Nguyen Maravilla Dietary counseling and surveillance Z71.3 and Body mass index [BMI] 50.0-59.9, adult Z68.43 [facility] [address] [id number] 02/22/2024 Derek Xie Obesity, morbid, BMI 50 or higher E66.01 ; Obstructive sleep apnea G47.33 ; Type 2 diabetes mellitus with hyperglycemia, without long-term current use of insulin E11.65 and Generalized arthritis M19.90 [facility] [address] [id number] 04/24/2024 Derek Xie Vitamin deficiency, unspecified E56.9 ; Postoperative intestinal malabsorption K91.2 ; Other specified personal risk factors, not elsewhere classified Z91.89 and S/P bariatric surgery Z98.84 [facility] [address] [id number] 02/28/2024 Derek Xie Pre-op evaluation Z01.818 ; Vitamin deficiency, unspecified E56.9 ; Other specified personal risk factors, not elsewhere classified Z91.89 ; S/P bariatric surgery Z98.84 and Postoperative intestinal malabsorption K91.2 [facility] [address] [id number] 03/06/2024 Derek Xie Vitamin D deficiency E55.9 [facility] [address] [id number] 04/26/2024 Derek Xie Constipation, unspecified constipation type K59.00 [facility] [address] [id number] 02/22/2024 Derek Xie [facility] [address] [id number] 02/28/2024 Derek Xie [facility] [address] [id number] 04/26/2024 Derek Xie [facility] [address] [id number] 04/26/2024 Derek Xie [facility] [address] [id number] 07/26/2024 Derek Xie Gastro-esophageal reflux disease with esophagitis, without bleeding K21.00 Assessments Encounter Date Diagnosis (ICD Code) Assessment Notes Treatment Notes Treatment Clinical Notes Section Notes 12/20/2023 Type 2 diabetes mellitus with hyperglycemia, without long-term current use of insulin (ICD-10 - E11.65) 12/20/2023 Obesity, morbid, BMI 50 or higher (ICD-10 - E66.01) 12/20/2023 Dietary counseling and surveillance (ICD-10 - Z71.3) 12/20/2023 Body mass index [BMI] 50.0-59.9, adult (ICD-10 - Z68.43) 02/22/2024 Obstructive sleep apnea (ICD-10 - G47.33) 02/22/2024 Obesity, morbid, BMI 50 or higher (ICD-10 - E66.01) 02/22/2024 Dietary counseling and surveillance (ICD-10 - Z71.3) 02/22/2024 Body mass index [BMI] 50.0-59.9, adult (ICD-10 - Z68.43) 02/28/2024 Vitamin deficiency, unspecified (ICD-10 - E56.9) 02/28/2024 Other specified personal risk factors, not elsewhere classified (ICD-10 - Z91.89) 02/28/2024 S/P bariatric surgery (ICD-10 - Z98.84) 02/28/2024 Postoperative intestinal malabsorption (ICD-10 - K91.2) 02/28/2024 Pre-op evaluation (ICD-10 - Z01.818) 03/06/2024 Vitamin D deficiency (ICD-10 - E55.9) 04/24/2024 Vitamin deficiency, unspecified (ICD-10 - E56.9) - Diet:Tolerating Pureed diet (Bariatric Phase III) without difficultly.Adva nce to Soft diet (Bariatric Phase IV) diet after 2 weeks .- Activity:Patient now permitted to start cardio exercises such as running, elliptical, etc. Okay to start exercise program with weight-training once 4 weeks out from surgery. Okay to return to work if not already returned .- Education:* Continue to follow-up with bariatric vice president of brand management/luis pressley .* Continue previous medications as prescribed. Continue to crush meds for the first 4 weeks post-op; after, may resume regular formulations. Continue to open up omeprazole capsule for first 3 months. Patient advised to see PCP about medication changes .* Instructions given today to start their vitamins. He understands the post-op vitamin requirements: MVI, calcium (1500mg daily), and supplements for any low vitamin levels PRN as determined by labwork. Daily MVI/calcium should include Vit D 5,000IU & Vit B1 100mg .* Patient counseled on behaviors necessary for weight loss: Discussed in detail the post-op diet progression, appropriate eating habits, fluid requirements, and food choices - advancing diet every 2 weeks until reaching stage 4 .* Discussed physical activity expectations: Goal of 10,000 steps/day and 150 active min/wk. First 9 months after surgery is the best time to make headway on weight loss .* Encouraged to attend support groups. Advised patient to see a counselor and/or PCP if mental health concerns arise .* Get labs drawn as ordered. Get radiology as ordered . - Disposition: Return in approximately 6 weeks for 2-month post-op follow-up visit* Patient has been instructed to have labs drawn prior to 2-month return visit: CBC w/ diff, CMP, Vit B12, Iron/TIBC, Folate, D 25-Hydroxy, HbA1C, Thiamine, Zinc. Orders placed .* The patient is encouraged to call the clinic with any questions or concerns in the meantime. The patient demonstrates understanding and is amenable to the above outlined plan. There are no barriers to education today 04/24/2024 Postoperative intestinal malabsorption (ICD-10 - K91.2) - Diet:Tolerating Pureed diet (Bariatric Phase III) without difficultly.Adva nce to Soft diet (Bariatric Phase IV) diet after 2 weeks .- Activity:Patient now permitted to start cardio exercises such as running, elliptical, etc. Okay to start exercise program with weight-training once 4 weeks out from surgery. Okay to return to work if not already returned .- Education:* Continue to follow-up with bariatric vice president of brand management/luis pressley .* Continue previous medications as prescribed. Continue to crush meds for the first 4 weeks post-op; after, may resume regular formulations. Continue to open up omeprazole capsule for first 3 months. Patient advised to see PCP about medication changes .* Instructions given today to start their vitamins. He understands the post-op vitamin requirements: MVI, calcium (1500mg daily), and supplements for any low vitamin levels PRN as determined by labwork. Daily MVI/calcium should include Vit D 5,000IU & Vit B1 100mg .* Patient counseled on behaviors necessary for weight loss: Discussed in detail the post-op diet progression, appropriate eating habits, fluid requirements, and food choices - advancing diet every 2 weeks until reaching stage 4 .* Discussed physical activity expectations: Goal of 10,000 steps/day and 150 active min/wk. First 9 months after surgery is the best time to make headway on weight loss .* Encouraged to attend support groups. Advised patient to see a counselor and/or PCP if mental health concerns arise .* Get labs drawn as ordered. Get radiology as ordered . - Disposition: Return in approximately 6 weeks for 2-month post-op follow-up visit* Patient has been instructed to have labs drawn prior to 2-month return visit: CBC w/ diff, CMP, Vit B12, Iron/TIBC, Folate, D 25-Hydroxy, HbA1C, Thiamine, Zinc. Orders placed .* The patient is encouraged to call the clinic with any questions or concerns in the meantime. The patient demonstrates understanding and is amenable to the above outlined plan. There are no barriers to education today 04/26/2024 Constipation, unspecified constipation type (ICD-10 - K59.00) 06/05/2024 Vitamin deficiency, unspecified (ICD-10 - E56.9) 06/05/2024 Morbid (severe) obesity due to excess calories (ICD-10 - E66.01) 07/26/2024 Gastro-esophageal reflux disease with esophagitis, without bleeding (ICD-10 - K21.00) 02/22/2024 Type 2 diabetes mellitus with hyperglycemia, without long-term current use of insulin (ICD-10 - E11.65) 06/05/2024 Other specified personal risk factors, not elsewhere classified (ICD-10 - Z91.89) 04/24/2024 Other specified personal risk factors, not elsewhere classified (ICD-10 - Z91.89) - Diet:Tolerating Pureed diet (Bariatric Phase III) without difficultly.Adva nce to Soft diet (Bariatric Phase IV) diet after 2 weeks .- Activity:Patient now permitted to start cardio exercises such as running, elliptical, etc. Okay to start exercise program with weight-training once 4 weeks out from surgery. Okay to return to work if not already returned .- Education:* Continue to follow-up with bariatric vice president of brand management/luis pressley .* Continue previous medications as prescribed. Continue to crush meds for the first 4 weeks post-op; after, may resume regular formulations. Continue to open up omeprazole capsule for first 3 months. Patient advised to see PCP about medication changes .* Instructions given today to start their vitamins. He understands the post-op vitamin requirements: MVI, calcium (1500mg daily), and supplements for any low vitamin levels PRN as determined by labwork. Daily MVI/calcium should include Vit D 5,000IU & Vit B1 100mg .* Patient counseled on behaviors necessary for weight loss: Discussed in detail the post-op diet progression, appropriate eating habits, fluid requirements, and food choices - advancing diet every 2 weeks until reaching stage 4 .* Discussed physical activity expectations: Goal of 10,000 steps/day and 150 active min/wk. First 9 months after surgery is the best time to make headway on weight loss .* Encouraged to attend support groups. Advised patient to see a counselor and/or PCP if mental health concerns arise .* Get labs drawn as ordered. Get radiology as ordered . - Disposition: Return in approximately 6 weeks for 2-month post-op follow-up visit* Patient has been instructed to have labs drawn prior to 2-month return visit: CBC w/ diff, CMP, Vit B12, Iron/TIBC, Folate, D 25-Hydroxy, HbA1C, Thiamine, Zinc. Orders placed .* The patient is encouraged to call the clinic with any questions or concerns in the meantime. The patient demonstrates understanding and is amenable to the above outlined plan. There are no barriers to education today 12/20/2023 Gastro-esophageal reflux disease without esophagitis (ICD-10 - K21.9) 12/20/2023 Obstructive sleep apnea (ICD-10 - G47.33) 02/22/2024 Generalized arthritis (ICD-10 - M19.90) 04/24/2024 S/P bariatric surgery (ICD-10 - Z98.84) - Diet:Tolerating Pureed diet (Bariatric Phase III) without difficultly.Adva nce to Soft diet (Bariatric Phase IV) diet after 2 weeks .- Activity:Patient now permitted to start cardio exercises such as running, elliptical, etc. Okay to start exercise program with weight-training once 4 weeks out from surgery. Okay to return to work if not already returned .- Education:* Continue to follow-up with bariatric vice president of brand management/luis pressley .* Continue previous medications as prescribed. Continue to crush meds for the first 4 weeks post-op; after, may resume regular formulations. Continue to open up omeprazole capsule for first 3 months. Patient advised to see PCP about medication changes .* Instructions given today to start their vitamins. He understands the post-op vitamin requirements: MVI, calcium (1500mg daily), and supplements for any low vitamin levels PRN as determined by labwork. Daily MVI/calcium should include Vit D 5,000IU & Vit B1 100mg .* Patient counseled on behaviors necessary for weight loss: Discussed in detail the post-op diet progression, appropriate eating habits, fluid requirements, and food choices - advancing diet every 2 weeks until reaching stage 4 .* Discussed physical activity expectations: Goal of 10,000 steps/day and 150 active min/wk. First 9 months after surgery is the best time to make headway on weight loss .* Encouraged to attend support groups. Advised patient to see a counselor and/or PCP if mental health concerns arise .* Get labs drawn as ordered. Get radiology as ordered . - Disposition: Return in approximately 6 weeks for 2-month post-op follow-up visit* Patient has been instructed to have labs drawn prior to 2-month return visit: CBC w/ diff, CMP, Vit B12, Iron/TIBC, Folate, D 25-Hydroxy, HbA1C, Thiamine, Zinc. Orders placed .* The patient is encouraged to call the clinic with any questions or concerns in the meantime. The patient demonstrates understanding and is amenable to the above outlined plan. 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) 12/20/2023 Generalized arthritis (ICD-10 - M19.90) 06/05/2024 Obstructive sleep apnea (ICD-10 - G47.33) Plan Of Treatment Pending Test Test Name Order Date Chest X-ray PA and lateral 02/28/2024 Electrocardiogram (EKG) 02/28/2024 ESOPHAGOGASTRODUODENOSCOPY 12/20/2023 IRON, TIBC AND FERRITIN PANEL (5616) IRON, TIBC AND FERRITIN PANEL (5616) 06/2024 COMPREHENSIVE METABOLIC PANEL (70360) COMPREHENSIVE METABOLIC PANEL (88003) CBC (H/H, RBC, INDICES, WBC, PLT) (1759) 06/05/2024 CBC (H/H, RBC, INDICES, WBC, PLT) (1759) 04/24/2024 HEMOGLOBIN A1c (496) 04/24/2024 HEMOGLOBIN A1c (496) 06/05/2024 VITAMIN B12/FOLATE, SERUM PANEL (7065) 0 06/05/2024 VITAMIN B12/FOLATE, SERUM PANEL (7065) 0 04/24/2024 TSH (899) 06/05/2024 TSH (899) 04/24/2024 VITAMIN D,25-OH,TOTAL,IA (56812) 025 VITAMIN D,25-OH,TOTAL,IA (37178) 025 ZINC (945) 04/24/2024 ZINC (945) 06/05/2024 VITAMIN B1 (THIAMINE), SERUM/PLASMA, LC/ MS/MS (09341) 06/05/2024 VITAMIN B1 (THIAMINE), SERUM/PLASMA, LC/ MS/MS (80677) 04/24/2024 Insurance Providers Payer Name Payer Address Payer Phone Subscriber Number Group Number Insured Name Patient Relationship to Insured Coverage Start Date Coverage End Date [employer] [address] [place] [phone] [id number] Doe Tarango Self - patient is the insured Medical (General) History Medical History History ICD Code Anemia: Arthritis,Asthma,Diabetes (type 2),Gout,Sleep Apnea,Snoring Surgical History Surgery Date(Month/Year) Derek Xie DO LAPAROSCOPIC SLEEVE GASTRECTOMY 04/05/2024
--- OUTSIDE RECORDS SUMMARY | 2024-09-25 11:48 | XMS_ITS | Clinical Summary ---
Author Organization [facility] Address [address] [place] [address] Care Team Providers Care Project Control Manager Name Role Phone Rick Riggs Primary Care Provider + Allergies Active Allergy Reactions Criticality Noted Date Comments Feathers Sneezing Low 02/09/2021 Iodinated Contrast Media Other (See comments) High 04/11/2018 Family history of contrast dye, no personal history. Mite Extract Unknown High 04/18/2018 Congestion , water eyes , runny nose Mold Itching,Unknown High 04/18/2018 Congestion, watery eye, runny nose Nsaids (Non-Steroidal Anti-Inflammatory Drug) Other (See comments) 05/14/2024 Patient has history of bariatric surgery Other Other (See comments) High 04/11/2018 Family history of contrast dye, no personal history. Medications fluticasone (FLONASE) 50 mcg/actuation nasal spray inhale 1 spray by intranasal route every day in each nostril 1 spray 0 01/02/20 14 Active cetirizine (ZyrTEC) 10 mg tablet take 1 tablet by oral route every day 0 0 07/01/19 17 Active naproxen (NAPROSYN,ALEV E) 500 mg tablet Take 1 tablet (500 mg total) by mouth 2 (two) times a day with meals 12/17/19 17 Active tamsulosin (FLOMAX) 0.4 mg extended release capsule Take 1 capsule (0.4 mg total) by mouth nightly 3 11/26/19 19 Active Victoza 3-Regan 0.6 mg/0.1 mL (18 mg/3 mL) injection Inject 1.2 mg under the skin daily 01/12/20 21 Active HYDROcodone-ac etaminophen (NORCO) 5-325 mg per tabletIndicati ons:Pain Take 1 tablet by mouth every 4 (four) hours as needed (moderate/severe pain) 15 tablet 08/12/19 22 Active Additional Information Patient not taking.Reported on 09/12/2022 ofloxacin (FLOXIN) 0.3 % otic solution Administer 5 drops into the left ear 2 (two) times a day 10 mL 3 08/27/19 22 Active Additional Information Patient not taking.Reported on 09/12/2022 traMADoL (ULTRAM) 50 mg tablet Take 1 tablet (50 mg total) by mouth every 6 (six) hours P.r.n. pain not relieved by meloxicam alone. Take with food. Take 500 mg to 650 mg of acetaminophen with each dose. Collaborating physician Nick Adhikari MD 20 tablet 08/05/19 23 Active diclofenac sodium (VOLTAREN) 1 % gel Apply 2 g topically 4 (four) times a day Apply over area of maximal intensity pain. Collaborating physician Nick Adhikari MD 200 g 1 08/05/19 23 Active meloxicam (MOBIC) 15 mg tablet Take 1 tablet (15 mg total) by mouth daily Take as directed to reduce pain and inflammation. Collaborating physician Nick Adhikari MD 30 tablet 08/05/19 23 Active Additional Information Patient not taking.Reported on 09/12/2022 testosterone cypionate (DEPO-TESTOTER ONE) 200 mg/mL injection INJECT 1/2 ML (100 MG) INTRAMUSCULARLY EVERY 2 WEEKS 07/02/19 23 Active OneTouch Verio test strips strip TEST 3 TIMES DIALY DIRECTED. 09/18/19 23 Active meloxicam (MOBIC) 15 mg tablet Take 1 tablet (15 mg total) by mouth daily 30 tablet 1 12/01/19 23 Active methocarbamoL (ROBAXIN) 500 mg tablet Take 1 tablet (500 mg total) by mouth 2 (two) times a day 20 tablet 02/23/19 24 Active lidocaine (LIDODERM) 5 % Place 1 patch on the skin daily for 14 days Remove & discard patch within 12 hours or as directed by . 14 patch 02/23/19 24 Active Active Problems Problem Noted Date Diagnosed Date Environmental allergies 11/14/2022 Ankle joint pain 11/14/2022 Backache 11/14/2022 Dyslipidemia 11/14/2022 Hypersomnia 11/14/2022 Reduced libido 11/14/2022 Sinusitis 11/14/2022 Sprain of left knee 08/04/2022 Osteoarthritis of left knee 08/04/2022 Cholesteatoma of left ear 05/02/2021 Encounter for debridement of left postmastoidect eriberto cavity 12/22/2020 Chronic otitis externa of left ear 12/21/2020 Chronic idiopathic constipation 01/13/2019 [place] 12/11/2018 Mild intermittent asthma without complication LOLLY on CPAP 04/20/2018 Epididymal cyst 02/16/2017 Enlarged liver 02/16/2017 Hepatic artery stenosis 02/16/2017 History of asthma 12/16/2016 BMI 50.0-59.9, adult 11/17/2016 Allergic rhinitis 11/17/2016 Obstructive sleep apnea syndrome 11/17/2016 Gout 07/08/2016 Conductive hearing loss 07/06/2016 Mass of scalp 05/01/2014 Overview (05/27/2016): Cyst of scalp Assessment & Plan (12/04/2018 12:45 PM CDT): Right parietal scalp Treatment via punch excision discussed including risks, benefits, and recovery. The patient would like to proceed and we did this excision in the clinic today. See procedure note. I initially anticipated this to be a Pilar cyst as it was quite mobile and soft. However, once the area was open, it was noted to be a soft solid mass and not a cyst. In addition, the mass had a larger base that went quite deep. I did not attempt to excise the base of this mass. Rather, I debulked the smaller protruding portion of the mass in then closed the wound. We will send the contents to pathology and then have the patient follow up with us on a day that Dr. Madrid is here next week so that we can discuss further treatment and plan having a diagnosis. Otitis media 01/01/2014 Overview (05/27/2016): Otitis media DDD (degenerative disc disease), thoracolumbar 1 04/02/2010 Thoracic disc herniation 01/30/2011 Immunizations Immunization Administration Dates Next Due Hep A, Adult 05/01/2014 PPD TEST 10/21/2019 Pfizer SARS-CoV-2 Monovalent Vaccination (12+ Yrs) PURPLE 10/28/2020 Tdap 09/11/2018 Surgical History Surgery Date Site/Laterality Comments OTHER SURGICAL HISTORY recurrent ear infections: Tympanostomy, TM repair, mastoidectomy TONSILLECTOMY Tonsillectomy POLYPECTOMY Sinus polypectomy MYRINGOTOMY W/TYMPANOSTOMY T UBE INSERTION myringotomy TYMPANOPLASTY Bilateral tympanoplasty OTHER SURGICAL HISTORY Tonsillectomy & Adnoidectomy TUBAL LIGATION Tubes MASTOID SURGERY Mastoidectomy OTHER SURGICAL HISTORY Sinus Polyps Removed NASAL FRACTURE SURGERY Medical History Medical History Date Comments Exercise-induced asthma Asthma, exercise-induced; Comments: DNT 01/01/2014 - Hx Other Medical recurrent ear i nfections; Comments: DNT 01/01/2014 - Gout 05/2016 Allergic rhinitis Gout Sleep apnea Diabetes mellitus (HCC) Osteoarthritis Family History Medical History Relation Name Comments Gout Brother 1 Gout; Sleep apnea Brother 2 Sleep apnea; Colon cancer Father Cancer, colon; Diabetes Father Diabetes mellit us; Other Father LOLLY; Sleep apnea Father Sleep apnea; Cancer Maternal Grandfather Cancer, unknown; Hypertension Mother Hypertension; Arthritis Other Heart disease Other Relation Name Status Comments Brother 1 Brother 2 Father Maternal Grandfather Mother Other Social History Tobacco Use Types Packs/Day Years Used Date Smoking Tobacco: Former Smokeless Tobacco: Never Alcohol Use Standard Drinks/Week Comments Yes 0 (1 standard drink = 0.6 oz pur e alcohol) AUDIT-C Answer Date Recorded Q1: How often do you have a drink containing alc ohol? Monthly or less 02/10/2021 Q2: How many drinks containi ng alcohol do you have on a typical day when you are drinking? 1 or 2 02/10/2021 Q3: How often do you have si x or more drinks on one occasion? Never 02/10/2021 Personal Safety Answer Date Recorded Have you ever been in or are you currently in a harmful physical or emotional relationship or is someone making you feel afraid or unsafe? Denies 05/14/2024 Sex and Gender Information Value Date Recorded Sex Assigned at Not on file Legal Sex Male 1:46 PM [employer] Gender Identity Not on file Sexual Orientation Not on file Obstetrics History Last Filed Vital Signs Vital Sign Reading Time Taken Comments Blood Pressure 125/68 05/14/2024 9:36 AM CDT Pulse 86 05/14/2024 9:36 AM CDT Temperature 37.1 C (98.7 F) 05/14/2024 9:36 AM CDT Respiratory Rate 18 05/14/2024 9:36 AM CDT Oxygen Saturation 95% 05/14/2024 9:36 AM CDT Inhaled Oxygen Concentration - - Weight 156.5 kg (345 lb) 05/14/2024 9:36 AM CDT Height 188 cm (6' 2) 05/14/2024 9:36 AM CDT Body Mass Index 44.3 05/14/2024 9:36 AM CDT Plan of Treatment Health Maintenance Due Date Last Done Comments Varicella Vaccines (1 of 2 - 13+ 2-dose series) 1993 Hepatitis B Screening 1998 Regular Well Visit/Exam 18-64 1998 HPV Vaccines (1 - 3-dose SCD M series) 04/28/2007 Depression Screening 05/05/2018 05/05/2017, 12/17/19 17 Pneumococcal vaccine <65 (2 of 2 - PCV) 08/19/2022 08/19/2021 Covid-19 Vaccine (5 - 2023-2 5 season) 2023 07/27/2021, 10/28/2020, 10/15/2020, Additional history exists DTaP/Tdap/Td Vaccine (2 - Td or Tdap) 09/11/2028 09/11/2018 Hepatitis C Screening Completed 01/20/2017 Influenza Vaccine Discontinued Medical Devices Implanted Type Area Fur Mixer Operator Device Identifier Shelf Expiration Date Model / Serial / Lot [employer] Prosth Ossicular 3.0mm 0.75-5.75mm Ti Cntr Agness Concise Prtl 655-075 - [id number] Implanted:Qty: 1 on 08/11/2021 by Bismark Albrecht MD at [facility] Left: Ear [employer] 04/20/2026 [id number] / / [id number] Procedures Procedure Name Priority Date/Time Associated Diagnosis Comments HEPATITIS C ANTIBODY Routine 01/20/2017 3:18 PM [employer] Elevated ALT measurement from Last 3 Months or Most Recently Relevant to Health Maintenance Results * Hepatitis C antibody (01/20/2017 3:18 PM [employer]) Hep C Ab Negative Negative JUANI Blood specimen (specimen) 01/20/2017 3:18 PM [employer] 01/20/2017 6:29 PM [employer] Narrative JUANI HERNANDEZ - 01/20/2017 7:58 PM [employer] us Maddy Troy NP LAB MICROBIOLOGY - GENERAL [facility] Final Result JUANI [id number] Department [place] [address] from Last 3 Months or Most Recently Relevant to Health Maintenance Insurance [facility] Care Teams Project Control Manager Relationship Specialty Start Date End Date Rick Riggs PA [facility] [place] [address] PCP - General Internal Medicine 05/14/24
== END 2024-09-25 11:40 | disposition home or self-care (01) ==
PROVIDERS: Emergency Provider Nurse Practitioner; PCP Physician Assistant
DX: H60.92 Unspecified otitis externa, left ear (principal); Z87.891 Personal history of nicotine dependence; J45.909 Unspecified asthma, uncomplicated; M19.90 Unspecified osteoarthritis, unspecified site; M10.9 Gout, unspecified; G47.30 Sleep apnea, unspecified
CPT/HCPCS: 99213; G0463